=== PATIENT | male | born 1975 | race Caucasian/White ===

== ENCOUNTER → 2016-08-29 | Outpatient (CLI) | payer OTHER ==
[~2016-08-29] MED LIST: ACET-1256 PO; OXYC-57 PO; XRL15 PO; XRL20 PO
--- NOTE | 2016-08-29 12:04 | DIAGNOSTIC IMAGING REPORT ---
RIGHT WRIST MIN 3 VIEWS ROUTINE CLINICAL HISTORY: RIGHT WRIST FX Right trauma. Pain. COMPARISON: None. DISCUSSION: Slightly depressed fracture distal radius. Estimated impression is 2.5 mm. Fracture slightly oblique and extends to the mid articular services the radius. All remaining osseous structures are unremarkable. No evidence of dislocation. Moderate soft tissue edema IMPRESSION: Slightly depressed fracture distal radius extending to the articular surface. Electronically signed by: Kai Vega M.D. 08/29/2016 12:02 PM Dictated Date/Time: 08/29/2016 12:01 PM
== END | disposition home or self-care (01) ==
LOC: C.RDSM 15:16
PROVIDERS: ATTEND Physician Assistant
DX: S52.591A Other fractures of lower end of right radius, initial encounter for closed fracture (principal); X58.XXXA Exposure to other specified factors, initial encounter

== ENCOUNTER → 2016-08-30 | Outpatient (CLI) | payer OTHER ==
--- NOTE | 2016-08-30 08:23 | DIAGNOSTIC IMAGING REPORT ---
CT OF THE RIGHT WRIST CT DOSE: 252.23 mGy.cm HISTORY: Fracture RT WRIST PAIN, DISPLACED FX *3D RECONSTRUCTION* Right TECHNIQUE: Multiaxial CT images of the right wrist were performed and reformatted in the sagittal and coronal plane without the use of contrast. COMPARISON: None. FINDINGS: Oblique fracture distal radius. The oblique fracture involves the medial aspect of the distal radius. The avulsed fragment measures 1.9 cm in greatest linear dimension. Cross-sectional dimensions are 2.0 x 1.8 cm. Maximum bony distraction in the transaxial plane is 4 mm. Fracture extends to the articular services. Maximum separation at the articular services is approximately 3 mm. No additional acute bony abnormalities appreciated. There is moderate surrounding soft tissue edematous change. On the styloid appears to be intact. No additional abnormal motion is present. IMPRESSION: 1. Oblique mildly displaced fracture distal radius. 2. Fracture involves the medial aspect of the distal radius with extension to the articular surface. 3. dimensions are as noted above, with maximum distraction of 4 mm, and maximum separation at the articular surface of 3 mm. 4. Dimension of the avulsed fragment is as noted above. Electronically signed by: Kai Vega M.D. 08/30/2016 8:21 AM Dictated Date/Time: 08/30/2016 8:17 AM
== END | disposition home or self-care (01) ==
LOC: C.CTS 07:59
PROVIDERS: ATTEND Physician Assistant
DX: S52.591A Other fractures of lower end of right radius, initial encounter for closed fracture (principal); X58.XXXA Exposure to other specified factors, initial encounter

== ENCOUNTER 2016-09-04 07:49 | Day surgery (SDC) | payer OTHER ==
[2016-09-02 09:19] VITALS: BMI 36.0
--- NOTE | 2016-09-03 13:45 | HISTORY & PHYSICAL EXAMINATION ---
DATE OF ADMISSION: 09/04/2016 ATTENDING PHYSICIAN: Dr. Arturo Eddy. CHIEF COMPLAINTS: Right wrist pain. HISTORY OF PRESENT ILLNESS: This is a 41-year-old male, presents to the clinic for his preoperative history and physical. The patient fell on his outstretched right upper extremity while playing softball on 08/26/2016, causing significant pain in his wrist. The patient was unable to continue playing softball and was seen in [facility] on the , had x-rays performed and was placed in a splint and advised to follow up in our clinic. The patient has been in splint since. He has been using vaap-[id number] anti-inflammatories for relief of pain, inflammation and icing to the extremity. He states that he has appropriate range of motion of the fingers of his right hand. He denies any numbness or tingling in the right upper extremity, but has very limited range of motion due to fracture on his wrist. At this time, he denies any signs of fever, chills, sweats, nausea, vomiting, diarrhea or significant pain in the forearm. PAST MEDICAL HISTORY: Obesity. PAST SURGICAL HISTORY: None. FAMILY HISTORY: Positive for heart disease, cancer and diabetes. ALLERGIES: The patient has no known drug allergies. CURRENT MEDICATIONS: Ibuprofen 600 mg three times daily after meals. SOCIAL HISTORY: The patient consumes 2 alcoholic beverages per week, but denies any tobacco or illicit drug use. PHYSICAL EXAMINATION: SKIN: The patient's skin is normal in appearance. No skin lesions or discharge. He does have significant ecchymosis in the posterior aspect of the left thigh from a hamstring strain. EYES: Pupils are equal, round and reactive to light and accommodation. Extraocular movements are intact. EARS: Canals clear of cerumen. Tympanic membranes are intact bilaterally with no bulging or effusion. NOSE: Turbinates are pink and boggy in appearance with no appreciable rhinorrhea. THROAT: Posterior oropharynx is clear without edema, erythema or exudate. CARDIOVASCULAR: The patient has a regular rate and rhythm and no murmurs or gallops appreciated. LUNGS: Auscultation of lung guillaume reveals clear breath sounds throughout. No wheezing, rales or rhonchi. ABDOMEN: Obese, nondistended, and nontender with normoactive bowel sounds throughout. EXTREMITIES: Right wrist: The patient continues to have moderate edema over the dorsal surface of the right wrist. He experiences pain with attempted pronation of the wrist as well as wrist flexion and extension. He experiences referred pain to the distal radius with distraction and compression between the second and third digits. Otherwise, cosmetic manager strength is equal bilaterally. He experiences no pain with ulnar deviation or retraction and pincer grasp. There is no erythema, ecchymosis, or warmth or palpable deformity. No skin lesions or discharge. The patient is able make a complete fist without difficulty. He is able to resist wrist flexion and extension. At his elbow, he has full range of motion of the shoulder joint and appropriate dexterity of his digits on the right hand. The patient is neurovascularly intact in the upper extremities. Peripheral pulses are palpable. His capillary refill is brisk. All other extremities are normal in appearance throughout range of motion and strength. NEUROLOGICAL: Cranial nerves II-XII are intact. No motor or sensory deficits. PSYCHOLOGIC AND GENERAL: The patient is alert and oriented x3 with proper grooming and hygiene. DIAGNOSIS: Right wrist displaced Bender's fracture with volar subluxation. PROCEDURE: Right wrist open reduction internal fixation. PLAN: The patient is scheduled to undergo the procedure with Dr. Arturo Eddy at the [facility] on 09/04/2016. Risks and complications of the surgery such as, infection, bleeding, pain, scarring, nerve and blood vessel damage, weakness, wound problems, incomplete relief of symptoms, heart attack, stroke, , hardware failure, malunion, nonunion, and arthritis were explained to the patient and he understands and agrees. Written consent to perform the procedure was obtained. At this point, there is no indication for medical clearance or preoperative medical testing. The patient completed a questionnaire with anesthesia this afternoon and is cleared for surgery. The patient was given a prescription of Percocet for postoperative pain control to use following the procedure. PDMP was checked and no red flags raised that would prevent us from prescribing this medication. The patient will be scheduled for his followup examination with myself on 09/11/2016 at 11:00 a.m. His 2-week postoperative followup with Dr. Eddy is set for 09/19/2016 at 03:00 p.m. The patient was advised to bring the sling with him to the hospital and to fill his prescription pain medication prior to the procedure. The patient was also instructed to discontinue use of his ibuprofen. The patient verbalized understanding of all information provided at his visit, thanked us for the care he has received and states that if he has questions or concerns prior to his surgery date, he will contact the clinic. SYDNEY
[~2016-09-04] VITALS: Ht 167.6 cm; Wt 102.3 kg
[~2016-09-04 07:49] MED LIST changes: +CEFAZOLIN 2000 MG/60 ML D5W IV SCH; +LACTATED RINGER'S 1000ML 1,000 ML IV SCH; -OXYC-57 PO; -XRL15 PO; -XRL20 PO
[2016-09-04 08:31] LABS: HEMATOCRIT 40.9 % (42-52); MEAN CORPUSCULAR HEMOGLOBIN 29.3 pg (25-34); MEAN PLATELET VOLUME 8.6 fL (7.4-10.4); PLATELET COUNT 255 K/uL (130-400); RED BLOOD COUNT 4.81 M/uL (4.7-6.1); WHITE BLOOD COUNT 6.35 K/uL (4.8-10.8)
[2016-09-04 08:32] VITALS: BP 134/84; PULSE 62; TEMP 36.7; O2SAT 95; Ht 167.6 cm; Wt 102.3 kg
[2016-09-04 08:36] LABS: MEAN CORPUSCULAR HGB CONC 34.5 g/dl (32-36)
[2016-09-04 08:43] LABS: PROTHROMBIN TIME (PATIENT) 10.7 SECONDS (9.0-12.0)
[2016-09-04] MEDS ORDERED: DEXAMETHASONE SOD INJ 4 MG/ML VIAL ONE (09:21)
[2016-09-04] MEDS ORDERED: PROPOFOL IV EMULSION 10 MG/ML 20 ML VIAL IV ONE ×2 (09:21→11:17)
[2016-09-04] MEDS ORDERED: LIDOCAINE HCL 2% 2 ML VIAL (20MG/ML) ONE (09:21)
[2016-09-04] MEDS ORDERED: ONDANSETRON INJ 2 MG/ML 2 ML VIAL ONE (09:21)
[2016-09-04] MEDS ORDERED: MIDAZOLAM HCL 1 MG/ML 2ML VIAL ONE (09:22)
[2016-09-04] MEDS ORDERED: FENTANYL CITRATE INJ 50 MCG/1 ML 2 ML VIAL ONE ×3 (09:22→12:47)
--- NOTE | 2016-09-04 09:33 | History & Physical Bridge Note ---
H&P Re-Evaluation Bridge Note: I have examined the patient, reviewed the History & Physical and in the interval since the performance of the History & Physical I have noted the following changes of clinical significance: No changes noted
[2016-09-04] MEDS ORDERED: LIDOCAINE/EPINEPHRINE 1% 20 ML VIAL ONE (10:51)
[2016-09-04] MEDS ORDERED: BUPIVACAINE 0.5 % 5 MG/1 ML MPF 30ML VIAL ONE (10:51)
[2016-09-04] MEDS ORDERED: MoRPHine SULFATE 4 MG/ML 1 ML CARP\\VIAL IV PRN (13:30)
[2016-09-04] MEDS ORDERED: OXYCODONE/ACETAMINOPHEN 5-325 TAB PO PRN (13:30)
[2016-09-04] MEDS ORDERED: MoRPHine SULFATE 2 MG/ML CARP IV PRN (13:30)
[2016-09-04] MEDS ORDERED: ONDANSETRON INJ 2 MG/ML 2 ML VIAL IV PRN (13:30)
--- NOTE | 2016-09-04 13:31 | DIAGNOSTIC IMAGING REPORT ---
RIGHT WRIST 2 VIEWS CLINICAL HISTORY: ORIF RT Right COMPARISON STUDY: Right wrist 08/29/2016. FINDINGS: Total fluoroscopy time was 27 seconds. A total of 3 intraoperative fluoroscopic spot images submitted. There is a cortical plate transfixed with screws bridging the distal radius fracture. The hardware appears intact. The alignment is near-anatomic. IMPRESSION: Fluoroscopy provided for internal fixation of a distal radius fracture. Electronically signed by: Obie Stanley M.D. 09/04/2016 1:30 PM Dictated Date/Time: 09/04/2016 1:29 PM
--- NOTE | 2016-09-04 13:31 | Discharge Instructions ---
Discharge Instructions Date of Service Sep 04, 2016. Admission Reason for Admission: Right Wrist Displaced Bender's Fracture W/Volar Wr Discharge Discharge Diagnosis / Problem: Status post ORIF Right wrist fracture Discharge Goals Goal(s): Decrease discomfort, Improve function, Increase independence Activity Recommendations Activity Limitations: per Instructions/Follow-up section Lifting Limitations: no more than 5 pounds Exercise/Sports Limitations: none May Resume Sexual Activity: when tolerated Shower/Bathe: may shower/bathe in 3 days Driving or Machine Use: Not while on narcotics or wearing splint . Instructions / Follow-Up Instructions / Follow-Up Dr. Eddy in 10-15 days. PT in 2-5 days. Current Hospital Diet Patient's current hospital diet: Regular Diet Discharge Diet Recommended Diet: Regular Diet Procedures Procedures Performed: Right Wrist Open Reduction Internal Fixation Pending Studies Studies pending at discharge: no Work Instructions Lifting Limitations: No more than cup of coffee Medical Emergencies . Who to Call and When: Medical Emergencies: If at any time you feel your situation is an emergency, please call 911 immediately. . Non-Emergent Contact Non-Emergency issues call your: Surgeon Call Non-Emergent contact if: temperature is above 101.5, your pain is not controlled, wound has increased drainage, wound has increased redness . "Provider Documentation" section prepared by Arturo Eddy. . VTE Core Measure Inpt VTE Proph given/why not?: Adrian Siu
--- NOTE | 2016-09-04 13:32 | [facility] Post Operative Brief Note ---
Immediate Operative Summary Operative Date Sep 04, 2016. Pre-Operative Diagnosis Right wrist displaced Bender's fracture with volar subluxation Post-Operative Diagnosis Right wrist displaced Bender's fracture with volar subluxation Procedure(s) Performed Right Wrist Open Reduction Internal Fixation Surgeon Dr. Arturo Eddy Machine Ii Cutter Surgeon(s) Pino Graham MD Estimated Blood Loss 7ML Findings 2 part intra-articular volar Bender Ulnar variant, displaced. Fluids (cc crystalloids) 1300 Specimens none per surgeon Dr. Arturo Eddy Drains n/a Anesthesia LMA Complication(s) None Disposition Recovery Room / PACU (Stable)
--- NOTE | 2016-09-04 13:35 | [facility] Operative Report ---
Operative Report Operative Date Sep 04, 2016. Pre-Operative Diagnosis Right wrist displaced Bender's fracture with volar subluxation Post-Operative Diagnosis Same Procedure(s) Performed Open Reduction Internal Fixation Right Distal Radius Fracture. Surgeon Dr. Arturo Eddy Batch Still Operator Surgeon(s) Pino Graham MD Estimated Blood Loss 7ML Findings 2 part intra-articular volar Bender Ulnar variant, displaced. Fluids 1300 Specimens none per surgeon Dr. Arturo Eddy Drains n/a Anesthesia LMA Complication(s) None Disposition Recovery Room / PACU (Stable) Indications Patient is a 41 year old male with x-ray, CT scan and clinical exam findings consistent with an unstable and displaced right distal radius fracture. After a lengthy discussion with the patient regarding their treatment options, I recommended that they undergo an ORIF of her right distal radius fracture. The risk of surgery were discussed and include but not limited to: bleeding, nerve damage, infection, failure of the hardware, mal-union, non-union, continued pain , progression of arthritis, decreased activity level, and DVT. They understood all the risks and benefits and wished to proceed with surgery. The informed consent was signed. Description of Procedure IMPLANTS: 1) 2.4 mm VA-LCP Two-Column Volar Distal Radius Plate (Synthes). 2) 2.4 mm Vairable Angle Locking Screws (12 x 2, 14, 16 x 2, & 18 mm). PROCEDURE: The patient was taken to the Operating Room and placed in the supine position on the operating table. After general anesthetic was administered a multidisciplinary time-out was performed identifying my initials on the right upper limb as the correct and operative limb. Prior to the incision being made , 2 grams of intravenous Ancef were given. The splint was removed. The right upper extremity was prepped and draped in the standard sterile fashion. The planned incision was marked volarly ulnar to the radial artery. It was injected with a 50:50 mixture of 1% Lidocaine plain and 0.5% Marcaine with epi for a total of 6 cc. The limb was then exsanguinated by gravity for 3 minutes before inflating the tourniquet to 250mmHg. The planned incision was made and carried to the FCR. The sheath was incised and the FCR displaced radially to allow for the floor to be incised. Blunt dissection allowed exposure of the Pronator Quadratus. The ulnar fragment was easily identified. The fracture line was debrided to allow for the best reduction with combination of freer, dental pick, rongeur, and irrigation. A fragment was manually reduced with traction, wrist flexion and using a dental pick. The fragment was unstable and a K-wire was placed percutaneously from the radial styloid, used to stabilize the ulnar fragment to the main fragment. Fluoro was used to confirm the reduced fracture and the selected plates proper placement. The plate was held in place with K-ires. It initially could be placed a couple of mm more distal and a non-locking screw was placed in the glide hole and before tightening, the plate was repositioned 2 mm distally. The distal holes were then filled, 2 in the Ulnar fragment and 2 in the main fragment, followed by the proximal locking screws. The non-locking screw which was a few mm long was removed. The wounds were copiously irrigated. Final x- rays were taken showing anatomic reduction. The Pronator Quadratus was closed over the plate distally with 2-0 Vicryl. The tourniquet was deflated. Hemostasis was well maintained. The skin was closed with 4-0 Nylon using horizontal mattress stitch. The limb was cleaned and dried. The incision was covered with Xeroform, 4x4's, ADB, sterile cast padding a resting volar splint and AURELIANO bandage. The sponge and needle counts were correct. POST-OP INSTRUCTIONS. The patient will continue with the splint until their follow-up in 2 weeks. Pain medication was given to be used as needed. No lifting with right hand. The patient will follow up with me in 10-15 days. I attest to the content of the Intraoperative Record and any orders documented therein. Any exceptions are noted below.
[2016-09-04 14:30] VITALS: BP 147/72; PULSE 58; TEMP 37.1; O2SAT 94
--- NOTE | 2016-09-04 14:31 | Anesthesiology Progress Note ---
Anesthesia Post Op Note Date & Time Sep 04, 2016 at 14:31 Vital Signs Pain Intensity: 0 Vital Signs Past 12 Hours Date Time Temp Pulse Resp B/P (MAP) Pulse Ox O2 Delivery O2 Flow Rate FiO2 09/04/16 14:20 36.5 64 18 134/80 95 Room Air 09/04/16 14:10 63 18 129/78 95 Room Air 09/04/16 14:00 65 20 129/82 98 Oxymask 3 09/04/16 13:50 67 16 143/94 98 Oxymask 10 09/04/16 13:44 36.4 71 16 147/88 98 Oxymask 10 09/04/16 08:32 36.7 62 18 134/84 (101) 95 Room Air Notes Mental Status: alert / awake / arousable, participated in evaluation Pt Amnestic to Procedure: Yes Nausea / Vomiting: adequately controlled Pain: adequately controlled Airway Patency, RR, SpO2: stable & adequate BP & HR: stable & adequate Hydration State: stable & adequate Anesthetic Complications: no major complications apparent
[2016-09-04 15:00] VITALS: BP 128/84; PULSE 63; TEMP 36.7; O2SAT 95
[2016-09-04 15:30] VITALS: BP 134/84; PULSE 58; TEMP 36.8; O2SAT 97
== END 2016-09-04 15:52 | disposition home or self-care (01) ==
LOC: C.ACU 07:49
PROVIDERS: ATTEND Orthopaedic Surgery Sports Medicine
DX: S52.561A Barton's fracture of right radius, initial encounter for closed fracture (principal); W19.XXXA Unspecified fall, initial encounter; Y93.64 Activity, baseball; E66.9 Obesity, unspecified; Z68.36 Body mass index [BMI] 36.0-36.9, adult; Z82.49 Family history of ischemic heart disease and other diseases of the circulatory system; Z80.9 Family history of malignant neoplasm, unspecified; Z83.3 Family history of diabetes mellitus

== ENCOUNTER → 2016-10-17 | Outpatient (CLI) | payer OTHER ==
[~2016-10-17] MED LIST changes: -CEFAZOLIN 2000 MG/60 ML D5W IV SCH; -LACTATED RINGER'S 1000ML 1,000 ML IV SCH; +OXYC-57 PO; +XRL15 PO; +XRL20 PO
== END | disposition home or self-care (01) ==
LOC: C.RDSM 14:56
PROVIDERS: ATTEND Orthopaedic Surgery Sports Medicine
DX: Z09 Encounter for follow-up examination after completed treatment for conditions other than malignant neoplasm (principal)

== ENCOUNTER 2016-10-23 21:53 | Inpatient (IN) | payer OTHER ==
[~2016-10-23] VITALS: Ht 167.6 cm; Wt 119.3 kg
[~2016-10-23 21:53] MED LIST changes: -OXYC-57 PO; -XRL15 PO; -XRL20 PO
--- NOTE | 2016-10-23 22:57 | DIAGNOSTIC IMAGING REPORT ---
CHEST ONE VIEW PORTABLE CLINICAL HISTORY: Shortness of breath. COMPARISON STUDY: No previous studies for comparison. FINDINGS: The heart is enlarged. There is elevation the right hemidiaphragm. There are low lung volumes. There are hypoventilatory changes at the lung bases.[ No pleural effusions are visualized. There is no failure. IMPRESSION: 1. Mild cardiomegaly 2. Low lung volumes with elevation of the right hemidiaphragm and hypoventilatory changes at the lung bases. Electronically signed by: Nico Mckeon M.D. 10/23/2016 10:56 PM Dictated Date/Time: 10/23/2016 10:54 PM
[2016-10-23 23:00] LABS: BASO % 0.1 %; BASO ABS # 0.01 K/uL (0-0.2); COMPLETE YES; EOS % 0.1 %; IG% 0.2 %; LYMPH % 10.3 %; LYMPH ABS # 1.02 K/uL (1.2-3.4); MEAN CELL VOLUME 84.9 fL (80-100); MEAN CORPUSCULAR HEMOGLOBIN 29.3 pg (25-34); MEAN CORPUSCULAR HGB CONC 34.5 g/dl (32-36); MEAN PLATELET VOLUME 9.1 fL (7.4-10.4); MONO % 4.6 %; NEUT % 84.7 %; PLATELET COUNT 257 K/uL (130-400); RED BLOOD COUNT 4.71 M/uL (4.7-6.1); WHITE BLOOD COUNT 9.89 K/uL (4.8-10.8)
--- NOTE | 2016-10-23 23:05 | EMERGENCY ROOM VISIT NOTE ---
History Report prepared by Arlen: Nestor Khan Under the Supervision of: Dr. Elisabeth Perez D.O. First contact with patient: 22:43 Chief Complaint: SHORTNESS OF BREATH Stated Complaint: POST SURGERY SOB, PAIN Nursing Triage Summary: Patient with c/o shortness and breath and pain under right ribs s/p right wrist surgery today. History of Present Illness The patient is a 41 year old male who presents to the Emergency Room with complaints of cramping right sided rib pain that began this evening. He rates his pain a 5/10 in severity. The patient had a surgical procedure done earlier today. He had a plate removed from his right arm and a different device implanted. He currently has a nerve block in his right arm. This evening, the patient tried to lie down and had this sudden pain begin, making him short of breath as well. Lying down makes his pain and shortness of breath worse. Taking a deep breath exacerbates his pain. He denies any fevers, chills, abdominal pain , nausea, vomiting, hematochezia, melena, diarrhea, or abnormal urinary symptoms. He denies any pain or swelling in his legs. Source of History: patient Onset: this evening Position: chest (right rib) Symptom Intensity: 5/10 Quality: cramping Timing: constant Modifying Factors (Worsening): rest (Lying down), breathing Associated Symptoms: + SOB, No fevers, No nausea, No vomiting, No abdominal pain, No melena, No hematochezia, No diarrhea, No urinary symptoms Review of Systems See HPI for pertinent positives & negatives. A total of 10 systems reviewed and were otherwise negative. Past Medical & Surgical Medical Problems: (1) Pulmonary embolism Family History FHx: cancer Heart disease Social History Smoking Status: Never Smoker Smokeless Tobacco Use: No Drug Use: none Marital Status: Housing Status: lives with significant other Occupation Status: employed Current/Historical Medications Scheduled Oxycodone/Acetaminophen 5MG/325MG (Percocet 5MG/325MG), 1-2 TABLETS PO Q4-6 Rivaroxaban (Xarelto), 1 TAB PO BID Rivaroxaban (Xarelto), 1 TAB PO DAILY Scheduled PRN Acetaminophen (Tylenol), 1,000 MG PO Q6 PRN for Pain Allergies Coded Allergies: No Known Allergies (Unverified , 10/23/16) Physical Exam Vital Signs Date Time Temp Pulse Resp B/P (MAP) Pulse Ox O2 Delivery O2 Flow Rate FiO2 10/24/16 00:50 74 10/24/16 00:37 56 16 154/86 97 Room Air 10/23/16 23:27 96 16 147/81 96 Room Air 10/23/16 23:08 Room Air 10/23/16 22:31 Room Air 10/23/16 22:28 Room Air 10/23/16 22:01 37.2 62 18 127/78 96 Room Air Physical Exam GENERAL: alert, well appearing, well nourished, no distress, non-toxic EYE EXAM: normal conjunctiva, PERRL and EOM's grossly intact OROPHARYNX: no exudate, no erythema, lips, buccal mucosa, and tongue normal and mucous membranes are moist NECK: supple, no nuchal rigidity, no adenopathy, non-tender LUNGS: Clear to auscultation. Normal chest wall mechanics. No wheezes, rhonchi, or rales. HEART: no murmurs, S1 normal and S2 normal CHEST: No reproducible chest wall pain. ABDOMEN: abdomen soft, non-tender, normo-active bowel sounds, no masses, no rebound or guarding. BACK: Back is symmetrical on inspection and there is no deformity, no midline tenderness, no CVA tenderness. SKIN: no rashes and no bruising UPPER EXTREMITIES: Postprocedural right upper extremity in a sling, numbness secondary to nerve block. LOWER EXTREMITIES: No pitting edema. NEURO EXAM: Normal sensorium, cranial nerves II-XII grossly intact, normal speech, no gross weakness of left arm, no gross weakness of legs. Medical Decision & Procedures ER Provider Diagnostic Interpretation: Radiology results have been interpreted by the radiologist and reviewed by me. CHEST ONE VIEW PORTABLE CLINICAL HISTORY: Shortness of breath. COMPARISON STUDY: No previous studies for comparison. FINDINGS: The heart is enlarged. There is elevation the right hemidiaphragm. There are low lung volumes. There are hypoventilatory changes at the lung bases.[ No pleural effusions are visualized. There is no failure. IMPRESSION: 1. Mild cardiomegaly 2. Low lung volumes with elevation of the right hemidiaphragm and hypoventilatory changes at the lung bases. Electronically signed by: Nico Mckeon M.D. 10/23/2016 10:56 PM Dictated Date/Time: 10/23/2016 10:54 PM CTA CHEST: Breathing motion artifact limits evaluation of small peripheral pulmonary arteries. Positive for pulmonary embolism in the right upper lobe pulmonary arteries, likely the right lower lobe arteries. Mild flattening of the interventricular septum. May reflect mild right heart strain. Mild right lower lobe atelectasis or consolidation. Postop changes of the right forearm on utility appraiser view. Radiologist: Korina Holland M.D. Laboratory Results 10/23/16 22:45 Red Blood Count 4.71, Mean Corpuscular Volume 84.9, Mean Corpuscular Hemoglobin 29.3, Mean Corpuscular Hemoglobin Concent 34.5, Mean Platelet Volume 9.1, Neutrophils (%) (Auto) 84.7, Lymphocytes (%) (Auto) 10.3, Monocytes (%) (Auto) 4.6, Eosinophils (%) (Auto) 0.1, Basophils (%) (Auto) 0.1, Neutrophils # (Auto) 8.38, Lymphocytes # (Auto) 1.02, Monocytes # (Auto) 0.45, Eosinophils # (Auto) 0.01, Basophils # (Auto) 0.01 10/23/16 22:45 Test 10/23/16 22:45 10/23/16 22:58 10/24/16 00:57 White Blood Count 9.89 K/uL (4.8-10.8) Red Blood Count 4.71 M/uL (4.7-6.1) Hemoglobin 13.8 g/dL (14.0-18.0) Hematocrit 40.0 % (42-52) Mean Corpuscular Volume 84.9 fL (80-100) Mean Corpuscular Hemoglobin 29.3 pg (25-34) Mean Corpuscular Hemoglobin Concent 34.5 g/dl (32-36) Platelet Count 257 K/uL (130-400) Mean Platelet Volume 9.1 fL (7.4-10.4) Neutrophils (%) (Auto) 84.7 % Lymphocytes (%) (Auto) 10.3 % Monocytes (%) (Auto) 4.6 % Eosinophils (%) (Auto) 0.1 % Basophils (%) (Auto) 0.1 % Neutrophils # (Auto) 8.38 K/uL (1.4-6.5) Lymphocytes # (Auto) 1.02 K/uL (1.2-3.4) Monocytes # (Auto) 0.45 K/uL (0.11-0.59) Eosinophils # (Auto) 0.01 K/uL (0-0.5) Basophils # (Auto) 0.01 K/uL (0-0.2) RDW Standard Deviation 43.4 fL (36.4-46.3) RDW Coefficient of Variation 14.0 % (11.5-14.5) Immature Granulocyte % (Auto) 0.2 % Immature Granulocyte # (Auto) 0.02 K/uL (0.00-0.02) Prothrombin Time 10.9 SECONDS (9.0-12.0) Prothromb Time International Ratio 1.0 (0.9-1.1) Anion Gap 5.0 mmol/L (3-11) Est Creatinine Clear Calc Drug Dose 106.8 ml/min Estimated GFR () 95.5 Estimated GFR (Non- 82.4 BUN/Creatinine Ratio 14.9 (10-20) Calcium Level 8.8 mg/dl (8.5-10.1) Total Bilirubin 0.6 mg/dl (0.2-1) Aspartate Amino Transf (AST/SGOT) 30 U/L (15-37) Alanine Aminotransferase (ALT/SGPT) 53 U/L (12-78) Alkaline Phosphatase 99 U/L (45-117) Total Protein 7.0 gm/dl (6.4-8.2) Albumin 3.5 gm/dl (3.4-5.0) Globulin 3.5 gm/dl (2.5-4.0) Albumin/Globulin Ratio 1.0 (0.9-2) Bedside D-Dimer > 450 ng/mlFEU (0-450) Bedside Troponin I < 0.030 ng/ml (0-0.045) Laboratory results per my review. Medications Administered Medications (Trade) Dose Ordered Sig/Efe Route Start Time Stop Time Status Last Admin Dose Admin Heparin Sodium/ Dextrose (Heparin 25,000 Unit/500ml D5W) 25,000 unit STK-MED ONCE .ROUTE 10/24/16 00:53 10/24/16 00:54 DC 10/24/16 01:27 25,000 UNIT Oxycodone/ Acetaminophen (Percocet 5-325mg Tab) 1 tab Q4H PRN PO 10/24/16 01:00 10/24/16 18:23 DC 10/24/16 11:35 1 TAB ECG Indication: chest pain, SOB/dyspnea Rate (beats per minute): 61 Rhythm: normal sinus Findings: Q waves (Lead 3), no acute ischemic change, other (Normal axis, normal intervals) ED Course 2243: The patient was evaluated in room C3. A complete history and physical exam was performed. 0038: I updated the patient at this time. We discussed his results and treatment plan. I spoke with Dr. Garnica of [facility] at this time. They recommended starting the patient on a Heparin drip. He will be evaluating the patient for further management and care. 0040: Ordered Heparin Sodium/Dextrose 1 ea N/A Medical Decision Differential diagnosis: Etiologies such as infections, reactive airway disease, pneumonia, pneumothorax , COPD, CHF, cardiac ischemia, pulmonary embolism, musculoskeletal, gastrointestinal, as well as others were entertained. Patient well-appearing here, found to have multiple PEs. Unclear if related to recent surgery versus possible genetic component given brother's history of prior DVT that was previously thought to be related to malignancy. Patient not hypoxic, vital signs stable, troponin negative, EKG without any acute changes, no evidence of right heart strain. Patient started on anticoagulation and hyperkalemia will panel ordered after discussion with medicine. Patient aware of all results and need for admission. Hospitalist comfortable keeping the patient here despite recent surgery done at [place]. Doubt any additional cardiac pathology, no evidence of occult infectious etiology. Patient's right upper extremity still numb following nerve block for surgery this morning. Medication Reconcilliation Current Medication List: was personally reviewed by hi Blood Pressure Screening Patient's blood pressure: Normal blood pressure Blood pressure disposition: Did not require urgent referral Consults Time Called: 0035 Consulting Physician: Dr. Garnica - [facility] Returned Call: 0038 We discussed the patient's case at this time. They recommended starting the patient on Heparin. He will be evaluating that patient for further management and care. Impression Primary Impression: Pleuritic chest pain Additional Impression: Multiple pulmonary emboli Critical Care I have personally spent greater than 35 minutes of critical care time in the direct management of this patient. This includes bedside care, interpretation of diagnostic studies, and testing, discussion with consultants, patient, and family members, and other required patient management activities. This 35 minutes is in excess of all separately billable procedures. Involved system: Pulmonary, cardiac Scribe Attestation The scribe's documentation has been prepared under my direction and personally reviewed by me in its entirety. I confirm that the note above accurately reflects all work, treatment, procedures, and medical decision making performed by me. Departure Information Dispostion Being Evaluated By Hospitalist Prescriptions Rivaroxaban (Xarelto) 20 Mg Tab 1 TAB PO DAILY for 30 Days, #30 TAB 1 Refill Prov: Litzy Downing M.D. 10/24/16 Rivaroxaban (Xarelto) 15 Mg Tab 1 TAB PO BID for 21 Days, #1 TAB 0 Refills Prov: Litzy Downing M.D. 10/24/16 Referrals Nico Vera M.D. (PCP) Patient Instructions My [facility] Problem Qualifiers
[2016-10-23 23:13] LABS: PARTIAL THROMBOPLASTIN RATIO 0.9; PROTHROMBIN TIME (PATIENT) 10.9 SECONDS (9.0-12.0)
[2016-10-23 23:17] LABS: BUN/CREATININE RATIO 14.9 (10-20); CALCIUM 8.8 mg/dl (8.5-10.1); CREATININE 1.1 mg/dl (0.60-1.40); POTASSIUM 4.1 mmol/L (3.5-5.1)
[2016-10-23 23:17] LABS: POINT OF CARE TROPONIN I < 0.030 ng/ml (0-0.045)
[2016-10-23] MEDS ORDERED: OPTIRAY 320 IV PRN (23:30)
[2016-10-24] VITALS (11 sets, daily range): BP systolic 118–152; BP diastolic 77–85; PULSE 50–78; TEMP 36.6–37; O2SAT 92–95; Ht 167.6 cm; Wt 119.3 kg
[2016-10-24] MEDS ORDERED: HEPARIN 25000 UNIT/500 ML D5W ONE (00:53)
[2016-10-24] MEDS ORDERED: ONDANSETRON INJ 2 MG/ML 2 ML VIAL IV PRN (01:00)
[2016-10-24] MEDS ORDERED: ZOLPIDEM TARTRATE 5 MG TAB PO PRN (01:00)
--- NOTE | 2016-10-24 01:14 | History and Physical ---
History & Physical Date & Time of Service: Oct 24, 2016 at 01:06 Chief Complaint: Post Surgery Sob, Pain Primary Care Physician: Nico Vera M.D. History of Present Illness Source: patient Mr Proctor is a 41-year-old male who presents with shortness of breath. He reports that he was at [facility] earlier today around 10 AM and underwent general anesthesia to have a plate removed from his wrist. He previously had surgery on this when he had a softball accident, where he had fallen onto his right arm and dislocated and fractured it. Some of the nails attached to the tendons had been displaced, so he had repeat surgery again today. He denies any complications from the surgery and was discharged home the same day. He got home around 5:30 PM, and he noticed right side of his chest was cramping and that he would have shortness of breath when taking a deep breath in or laying flat. He came into the hospital and was found to have a right upper lobe and right lower lobe pulmonary embolism. He denies any family history with significant other clots. His brother did have a DVT in the leg though this was when he had cancer so was presumed to be provoked and he denied a hypercoagulable workup. Past Medical/Surgical History PMHx: none PSHx: R arm surgery x 2 Family History FHx: cancer Heart disease Social History Smoking Status: Never Smoker Smokeless Tobacco Use: No Alcohol Use: none Drug Use: none Marital Status: Housing status: lives with family Occupational Status: employed Immunizations History of Influenza Vaccine: Unknown History of Tetanus Vaccine?: Unknown History of Pneumococcal: Unknown History of Hepatitis B Vaccine: Unknown Multi-Drug Resistant Organisms History of MDRO: No Allergies Coded Allergies: No Known Allergies (Unverified , 10/23/16) Home Medications Scheduled Oxycodone/Acetaminophen 5MG/325MG (Percocet 5MG/325MG), 1-2 TABLETS PO Q4-6 Scheduled PRN Acetaminophen (Tylenol), 1,000 MG PO Q6 PRN for Pain Review of Systems See HPI for pertinent positives & negatives. A total of 10 systems reviewed and were otherwise negative. Physical Exam Vital Signs Date Time Temp Pulse Resp B/P (MAP) Pulse Ox O2 Delivery O2 Flow Rate FiO2 10/24/16 00:37 56 16 154/86 97 Room Air 10/23/16 23:27 96 16 147/81 96 Room Air 10/23/16 23:08 Room Air 10/23/16 22:31 Room Air 10/23/16 22:28 Room Air 10/23/16 22:01 37.2 62 18 127/78 96 Room Air General Appearance: WD/WN, + mild distress Head: normocephalic, atraumatic Eyes: normal inspection, PERRL ENT: hearing grossly normal Neck: supple, no JVD Respiratory/Chest: lungs clear, normal breath sounds, no respiratory distress Cardiovascular: regular rate, rhythm, no murmur, normal peripheral pulses Abdomen/GI: normal bowel sounds, non tender, soft Back: normal inspection, no muscle spasm, normal range of motion Extremities/Musculoskelatal: no calf tenderness, no pedal edema, + pertinent finding (R arm in sling) Neurologic/Psych: alert, normal mood/affect, normal reflexes, oriented x 3 Skin: no rash Diagnostics Laboratory Results Results Past 24 Hours Test 10/23/16 22:45 10/23/16 22:58 10/24/16 00:57 Range/Units White Blood Count 9.89 4.8-10.8 K/uL Red Blood Count 4.71 4.7-6.1 M/uL Hemoglobin 13.8 14.0-18.0 g/dL Hematocrit 40.0 42-52 % Mean Corpuscular Volume 84.9 80-100 fL Mean Corpuscular Hemoglobin 29.3 25-34 pg Mean Corpuscular Hemoglobin Concent 34.5 32-36 g/dl Platelet Count 257 130-400 K/uL Mean Platelet Volume 9.1 7.4-10.4 fL Neutrophils (%) (Auto) 84.7 % Lymphocytes (%) (Auto) 10.3 % Monocytes (%) (Auto) 4.6 % Eosinophils (%) (Auto) 0.1 % Basophils (%) (Auto) 0.1 % Neutrophils # (Auto) 8.38 1.4-6.5 K/uL Lymphocytes # (Auto) 1.02 1.2-3.4 K/uL Monocytes # (Auto) 0.45 0.11-0.59 K/uL Eosinophils # (Auto) 0.01 0-0.5 K/uL Basophils # (Auto) 0.01 0-0.2 K/uL RDW Standard Deviation 43.4 36.4-46.3 fL RDW Coefficient of Variation 14.0 11.5-14.5 % Immature Granulocyte % (Auto) 0.2 % Immature Granulocyte # (Auto) 0.02 0.00-0.02 K/uL Prothrombin Time 10.9 9.0-12.0 SECONDS Prothromb Time International Ratio 1.0 0.9-1.1 Activated Partial Thromboplast Time 23.0 21.0-31.0 SECONDS Partial Thromboplastin Ratio 0.9 Sodium Level 136 136-145 mmol/L Potassium Level 4.1 3.5-5.1 mmol/L Chloride Level 102 98-107 mmol/L Carbon Dioxide Level 29 21-32 mmol/L Anion Gap 5.0 3-11 mmol/L Blood Urea Nitrogen 16 7-18 mg/dl Creatinine 1.10 0.60-1.40 mg/dl Est Creatinine Clear Calc Drug Dose 106.8 ml/min Estimated GFR () 95.5 Estimated GFR (Non- 82.4 BUN/Creatinine Ratio 14.9 10-20 Random Glucose 118 70-99 mg/dl Calcium Level 8.8 8.5-10.1 mg/dl Total Bilirubin 0.6 0.2-1 mg/dl Aspartate Amino Transf (AST/SGOT) 30 15-37 U/L Alanine Aminotransferase (ALT/SGPT) 53 12-78 U/L Alkaline Phosphatase 99 45-117 U/L Total Protein 7.0 6.4-8.2 gm/dl Albumin 3.5 3.4-5.0 gm/dl Globulin 3.5 2.5-4.0 gm/dl Albumin/Globulin Ratio 1.0 0.9-2 Bedside D-Dimer > 450 0-450 ng/mlFEU Bedside Troponin I < 0.030 0-0.045 ng/ml Diagnostic Radiology CHEST ONE VIEW PORTABLE CLINICAL HISTORY: Shortness of breath. COMPARISON STUDY: No previous studies for comparison. FINDINGS: The heart is enlarged. There is elevation the right hemidiaphragm. There are low lung volumes. There are hypoventilatory changes at the lung bases.[ No pleural effusions are visualized. There is no failure. IMPRESSION: 1. Mild cardiomegaly 2. Low lung volumes with elevation of the right hemidiaphragm and hypoventilatory changes at the lung bases. Electronically signed by: Nico Mckeon M.D. 10/23/2016 10:56 PM Dictated Date/Time: 10/23/2016 10:54 PM CTA CHEST: Breathing motion artifact limits evaluation of small peripheral pulmonary arteries. Positive for pulmonary embolism in the right upper lobe pulmonary arteries, likely the right lower lobe arteries. Mild flattening of the interventricular septum. May reflect mild right heart strain. Mild right lower lobe atelectasis or consolidation. Postop changes of the right forearm on machine etcher view. Radiologist: Korina Holland M.D. EKG Normal sinus rhythm Possible Left atrial enlargement Left ventricular hypertrophy Abnormal ECG No previous ECGs available Impression Assessment and Plan 41 yo M with PE - first episode, unclear if it is truly provoked with brief time frame of surgery earlier today. Pulmonary embolism - Hypercoaguable workup obtained prior to Heparin - Heparin drip - Transition to PO anticoagulant tomorrow - Venous dopplers R arm surgery - Percocet q4h PRN - Remain in sling VTE: Heparin drip Code status: Full Dispo: Tele Attending Addendum: I have physically seen and examined this patient, have supervised the medical residents activities, and agree with the H&P as noted above with the following exceptions: NONE The patient is awake, well-developed and adequately nourished, alert and oriented 3, normocephalic and atraumatic, lying in bed and in no acute distress. HEENT--PERRL, EOMI, mucous membranes and oropharynx dry. Neck--supple, no JVD or bruits, thyroid normal, trachea midline, no adenopathy. Heart--normal S1 and S2, no extra beats, no murmurs, rubs or gallops. Lungs--clear bilaterally with good air movement, no respiratory distress, no accessory muscle use. Abdomen--normal bowel sounds and soft, nontender and nondistended, no hernias or masses, no organomegaly. Extremities--no cyanosis, clubbing or edema. Right arm is in a sling. There are good distal pulses b/l. Dermatologic--normal skin turgor, normal color, warm and dry, no abnormal lymph nodes, no rash. Neurologic--cranial nerves II through XII grossly intact. Rheumatologic--right arm in sling, exam otherwise normal. Psychiatric--normal affect. Assessment and Plan: 1. Right upper lobe and right lower lobe pulmonary embolism--patient will be admitted to the telemetry unit for close oxygen monitoring. Start heparin drip IV standard dose no bolus per weight-based protocol. Order bilateral lower extremity venous Dopplers. He will need to have a right upper extremity venous Doppler performed when sensation is returned after nerve block has worn off. Hypercoagulable workup ordered. Level of Care Telemetry Advanced Directives Existing Advance Directive: No Existing Living Will: No Existing Power of Porcelain Buildup Assistant: No Resuscitation Status FULL RESUSCITATION VTE Prophylaxis VTE Risk Assessment Done? Y/N: Yes Risk Level: Moderate Given or contraindicated: Other Anticoagulation (heparin IV standard dose no bolus per protocol) Social Service Consult None Apply Resident Tracking Resident Involvement: Resident Care Provided Care Provided: Adult Hospital Medicine
[2016-10-24] MEDS ORDERED: HEPARIN IV LOW DOSE NO BOLUS SCH (02:41)
[2016-10-24] MEDS: OXYCODONE/ACETAMINOPHEN 5-325 TAB PO PRN ×2 (04:39→11:35)
[2016-10-24] MEDS ORDERED: HEPARIN 25,000 UNIT/500ML D5W 500 ML IV PRN (05:00)
--- NOTE | 2016-10-24 06:42 | DIAGNOSTIC IMAGING REPORT ---
CT ANGIOGRAPHY OF THE CHEST, PULMONARY EMBOLUS PROTOCOL CLINICAL HISTORY: Shortness of breath. Chest pain. COMPARISON STUDY: Chest radiograph October 23, 2016. TECHNIQUE: Following IV administration of 97 mL of [id number]-320, helical axial images of the chest were obtained utilizing the pulmonary embolus protocol. Maximal intensity projections and sagittal and coronal reformats were viewed on an independent 3D workstation. IV contrast was administered without complication. A dose lowering technique was utilized adhering to the principles of ALARA. CT DOSE: 812.34 mGy.cm FINDINGS: There are multiple segmental pulmonary emboli throughout the lungs, these include emboli within the right upper, right lower, left upper and left lower lobes. There is no central pulmonary embolus. Note is made of moderate cardiomegaly. There is no pericardial effusion. Right lower lobe opacity is noted with volume loss. Linear right upper lobe opacity reflects atelectasis. There is no pneumothorax. There is no cavitation. Bony thorax is unremarkable. No abnormality is identified within the upper abdomen. Elevation of the right hemidiaphragm is noted. IMPRESSION: 1. Multiple segmental pulmonary emboli within the lungs, as described above. No convincing CT evidence for right heart strain. Moderate cardiomegaly. 2. Right lower lobe subpleural opacity with volume loss. Atelectasis is favored. Consolidation or pulmonary infarct could appear similar but are considered less likely. Electronically signed by: Patrick Salas M.D. 10/24/2016 6:40 AM Dictated Date/Time: 10/24/2016 6:33 AM
--- NOTE | 2016-10-24 06:51 | DIAGNOSTIC IMAGING REPORT ---
BILATERAL LOWER EXTREMITY VENOUS DOPPLER HISTORY: Acute bilateral lower extremity swelling COMPARISON STUDY: None. FINDINGS: There is normal compressibility, flow, and augmentation within the right lower extremity deep venous system. On the left, nonocclusive thrombus is present within the proximal aspect of the popliteal vein. The remaining deep veins of the left lower extremity are patent. IMPRESSION: 1. No evidence of deep venous thrombosis within the right lower extremity. 2. Nonocclusive deep venous thrombosis involves the proximal aspect of the popliteal vein. Electronically signed by: Jordan Fonseca M.D. 10/24/2016 6:49 AM Dictated Date/Time: 10/24/2016 6:45 AM
--- NOTE | 2016-10-24 08:19 | Family Medicine Progress Note ---
Progress Note Date of Service Oct 24, 2016. Subjective Pt evaluation today including: conversation w/ patient, physical exam, chart review, lab review, review of studies Voiding: no voiding problems Pt is resting comfortably in bed. Discussed need for monitoring his heart and lungs at this time due to the evidence of PE. Pt understands and agrees. Pt complained of some pain since the nerve block he received for the surgery yesterday wore off. His last percocet was at 2 am this morning. I let his nurse know, and discussed that post op the pain will be worse temporarily. Objective Physical Exam General Appearance: WD/WN, no apparent distress Eyes: normal inspection, PERRL, EOMI Respiratory/Chest: chest non-tender, no respiratory distress, + crackles (mild lower lobe crackles) Cardiovascular: regular rate, rhythm, no edema, no JVD Abdomen: normal bowel sounds, non tender, soft Extremities: + pertinent finding (RT arm in sling from Orthopedic revision surgery of RT wrist.) Skin: normal color, warm/dry, no rash Assessment and Plan 41M with PE - first episode, s/p orthopedic surgery, found to have RT PE. Pulmonary Embolism, RT upper and middle lobe - Pt had revision surgery of RT wrist at [place] yesterday morning. First surgery was end of August. - CTA CHEST: Positive for pulmonary embolism in the right upper lobe pulmonary arteries, likely the right lower lobe arteries. - EKG: Normal sinus rhythm. Possible Left atrial enlargement. Left ventricular hypertrophy. Abnormal ECG. No previous ECGs available. - Hypercoagulable work up obtained prior to Heparin. - Venous dopplers negative for clots. - Heparin drip DCed at 15:00 10/24. - Switched to Xarelto 15mg at 18:00 10/24. RT arm surgery - Percocet q4h PRN - Remain in sling VTE: Heparin drip Code status: Full Dispo: Tele. DC home. Discharge planning: home
[2016-10-24] MEDS ORDERED: HEPARIN IV BOLUS 4,500 UNIT in SYRINGE 0 ML IV ONE (11:45)
--- NOTE | 2016-10-24 15:09 | Discharge Summary ---
Discharge Summary Date of Service Oct 24, 2016. (Litzy Downing M.D.) Discharge Summary Admission Date: Oct 24, 2016 at 01:06 Discharge Date: Oct 24, 2016 Discharge Disposition: Home Principal Diagnosis: Pulmonary embolism Immunizations: Have You Had Influenza Vaccine: Unknown History of Tetanus Vaccine?: Unknown History of Pneumococcal: Unknown History of Hepatitis B Vaccine: Unknown (Litzy Downing M.D.) Medication Reconciliation New Medications: Rivaroxaban (Xarelto) 15 Mg Tab 1 TAB PO BID for 21 Days, #1 TAB 0 Refills Rivaroxaban (Xarelto) 20 Mg Tab 1 TAB PO DAILY for 30 Days, #30 TAB 1 Refill Continued Medications: Acetaminophen (Tylenol) 500 Mg Tab 1000 MG PO Q6 PRN for Pain for 2 Days, #20 TAB 3 Refills Oxycodone/Acetaminophen 5MG/325MG (Percocet 5MG/325MG) Tab 1-2 TABLETS PO Q4-6 for Pain, TAB PAIN Discharge Exam Review of Systems: Constitutional: No fever, No chills, No sweats Respiratory: No cough, No sputum, No wheezing Cardiovascular: No chest pain, No orthopnea, No edema Abdomen: No pain, No nausea, No vomiting Musculoskeletal: + problem reported (pain in his RT wrist under cast) Physical Exam: General Appearance: WD/WN, no apparent distress Eyes: normal inspection, PERRL, EOMI Respiratory/Chest: lungs clear, normal breath sounds, no respiratory distress Cardiovascular: regular rate, rhythm, no edema, no JVD, normal peripheral pulses Abdomen / GI: normal bowel sounds, non tender, soft Extremities: normal inspection, no pedal edema, + pertinent finding (RT arm in sling) Neurologic/Psychiatric: alert, normal mood/affect, oriented x 3 Skin: normal color, warm/dry, no rash (Litzy Downing M.D.) Hospital Course 41M with PE - first episode, s/p orthopedic surgery, found to have RT PE. Pulmonary Embolism, RT upper and middle lobe - Pt had revision surgery of RT wrist at [facility] yesterday morning. First surgery was end of August. - CTA CHEST: Positive for pulmonary embolism in the right upper lobe pulmonary arteries, likely the right lower lobe arteries. - EKG: Normal sinus rhythm. Possible Left atrial enlargement. Left ventricular hypertrophy. Abnormal ECG. No previous ECGs available. - Hypercoagulable work up obtained prior to Heparin. - Venous dopplers LE negative for clots. - Heparin drip DCed at 15:00 10/24. - Switched to Xarelto 15mg at 18:00 10/24. - Sent home with script for Xarelto 15 mg PO BID [id number], then 20mg PO OD x60 days. RT arm surgery - Percocet given q4h PRN - Remained in sling VTE: Heparin drip Code status: Full Total Time Spent: Greater than 30 minutes This includes examination of the patient, discharge planning, medication reconciliation, and communication with other providers. (Litzy Downing M.D.) Resident Physician Supervision Note: I interviewed and examined the patient. Discussed with Dr. Downing and agree with findings and plan as documented in the note. Any exceptions or clarifications are listed here: None Documented By: Da Champagne feeling ok wants to go home discussed anticoagulation ok w NOAC vitals noted nad breathing unlabored no pallor or icterus PE - stable/safe for home, transition to xarelto f/u PCP, otherwise as above (Da Champagne, D.O.) Discharge Instructions Please refer to the electronic Patient Visit Report (Discharge Instructions) for additional information. (Litzy Downing M.D.) Additional Copies To Nico Vera M.D. Resident Tracking Resident Involvement: Resident Care Provided Care Provided: Adult Hospital Medicine (Litzy Downing M.D.)
[2016-10-24] MEDS ORDERED: XRL15 PO (15:41)
[2016-10-24] MEDS ORDERED: XRL20 PO (15:41)
--- NOTE | 2016-10-24 15:47 | Discharge Instructions ---
Discharge Instructions Date of Service Oct 24, 2016. Admission Reason for Admission: Pulmonary Embolism Discharge Discharge Diagnosis / Problem: (1) Pulmonary embolism VTE Date & Time Date of VTE Diagnosis: Oct 23, 2016 Time of VTE Diagnosis: 23:28 Discharge Goals Goal(s): Decrease discomfort, Improve function, Improve disease control, Diagnostic testing, Therapeutic intervention Activity Recommendations Activity Limitations: as noted below Lifting Limitations: gradually increase as tolerated Exercise/Sports Limitations: gradually increase as tolerated May Resume Sexual Activity: when tolerated Driving or Machine Use: no limitations . Instructions / Follow-Up Instructions / Follow-Up - You were admitted because of pain in your chest and shortness of breath which was caused by a pulmonary embolism, likely provoked by multiple surgeries and long car rides. When the blood in our body sits for too long, or vessels are injured by routine surgeries, sometimes this can increase your risk of clots. When a big enough clot forms that the body cannot get rid of as normal, they can travel to different parts of the body and cause ischemia or damage. Yours traveled to the lungs and made it hard for you to breathe. - Pulmonary emboli are treated by closely monitoring vital signs and then also thinning the blood, in order to prevent new clots from forming, with Heparin intravenously. - Now that your vital signs are normal, and you've received sufficient doses of Heparin, it's time to switch your medication to one that can be taken at home. - You will be taking Xarelto tablets for the next 3 months. The schedule is as such: - First, take 15 mg twice a day, 12 hours apart, for 3 weeks total. (We discussed 6am and 6pm would work in your schedule.) - Then, after you have finished the 15 mg doses, you will take only 20mg ONCE DAILY, for 60 days total. - It is important that you follow up with your primary care provider regarding this hospitalization - we recommend you do this in 1-3 weeks. - Please know that with every medication there are both benefits and risks. The benefit is that we are preventing new clots from forming, hence preventing more emboli. But the risk is that the medication thins your blood too much, in which case should you get an injury, minor or major, there is a risk of excessive bleeding, or even hemorrhage. Generally, the risk of any major event depends on your type of injury, so please take care to not under go unnecessary dangerous or hi risk activities, or contact sports. Go to the emergency room after any serious injury. Any medical emergency, you should immediately call . - Should you get a minor injury like a cut or a scrape, apply direct pressure to the area of bleeding with a cloth for several minutes until the bleeding stops. Medication Instructions: Your condition is typically treated with an anticoagulant. Anticoagulants will thin your blood to help prevent new clots. * You should take her medication exactly as directed. * Never skip a dose. * Never take a double dose. If you miss a dose, take it as soon as you remember. Call your Primary Care doctor if you experience any of the following: * Swelling or Pain in your leg * Sudden, continuous pain deep in a muscle * Pain that worsens when you are active or when you stand still for a long time * Chest Pain * Sudden Shortness of Breath * Rapid or pounding heart beat * Fainting * Dizziness * Cough with blood or bloody sputum * Sweating more than normal * Bruises * Heavy or uncontrolled bleeding * Blood in your urine, stool or vomit * Black or tarry stools Caring for Your Self at Home: * Avoid sitting, standing or lying down for long periods without moving your legs and feet * When traveling by car, stop to get out and move around at least once every 3 hours * On long airplane, train or bus rides, get up and move around when possible * If you can't get up, wiggle your toes and tighten your calves to keep your blood moving Follow Up: It is important for you to keep your follow up appointments with your medical provider. Current Hospital Diet Patient's current hospital diet: Regular Diet Discharge Diet Recommended Diet: Regular Diet Fluid Restriction: None Pending Studies Studies pending at discharge: no Medical Emergencies . Who to Call and When: Medical Emergencies: If at any time you feel your situation is an emergency, please call 911 immediately. . Non-Emergent Contact Non-Emergency issues call your: Primary Care Provider . . "Provider Documentation" section prepared by Litzy Downing. . VTE Core Measure Inpt VTE Proph given/why not?: Other Anticoagulation (heparin IV standard dose no bolus per protocol)
--- NOTE | 2016-10-24 16:28 | Progress Note ---
Orthopedic SOAP Note Subjective Date of Service: Oct 24, 2016. Post OP Day: 1 Reports: feeling well (reports SOB improving, states prescribed pain medication allowing right wrist pain to be tolerable, states regional nerve block placed yesterday continues to wear off), SOB (improving s/p treatment), pain controlled w PO medications, Denies: complaints, chest pain, nausea / vomiting, light headedness, calf pain, using [employer] Additional Notes: Patient had surgery yesterday 10/23/[address] Kranthi Palma in [place], began having SOB upon arriving home yesterday post-operatively, sought treatment through [facility] Problem List Medical Problems: (1) Multiple pulmonary emboli Status: Acute (2) Pleuritic chest pain Status: Acute Objective N/V intact, capillary refill less than 2 sec., dressing C/D/I, A&O x3 sitting bedside chair with family in the room, NAD, long arm splint on right upper extremity elevated and currently icing, fingers freely mobile Date Time Temp Pulse Resp B/P (MAP) Pulse Ox O2 Delivery O2 Flow Rate FiO2 10/24/16 14:00 69 22 10/24/16 12:00 61 28 10/24/16 11:20 95 Room Air 10/24/16 11:20 36.9 53 17 135/79 (97) 94 Room Air 10/24/16 11:16 50 25 135/79 (97) 10/24/16 10:00 56 18 10/24/16 08:17 78 19 144/82 (102) 10/24/16 08:00 36.8 63 18 144/82 (102) 94 Room Air 10/24/16 08:00 62 20 10/24/16 08:00 94 Room Air 10/24/16 04:00 36.6 61 20 118/80 (93) 92 Room Air 10/24/16 04:00 95 Room Air 10/24/16 02:08 36.8 58 22 152/85 95 Room Air 10/24/16 01:50 37.2 61 16 128/69 94 10/24/16 01:26 61 16 128/69 94 Room Air 10/24/16 00:50 74 10/24/16 00:37 56 16 154/86 97 Room Air 10/23/16 23:27 96 16 147/81 96 Room Air 10/23/16 23:08 Room Air 10/23/16 22:31 Room Air 10/23/16 22:28 Room Air 10/23/16 22:01 37.2 62 18 127/78 96 Room Air Laboratory Results 24 Hours: Test 10/23/16 22:45 White Blood Count 9.89 K/uL Red Blood Count 4.71 M/uL Hemoglobin 13.8 g/dL Hematocrit 40.0 % Mean Corpuscular Volume 84.9 fL Mean Corpuscular Hemoglobin 29.3 pg Mean Corpuscular Hemoglobin Concent 34.5 g/dl Platelet Count 257 K/uL Mean Platelet Volume 9.1 fL Neutrophils (%) (Auto) 84.7 % Lymphocytes (%) (Auto) 10.3 % Monocytes (%) (Auto) 4.6 % Eosinophils (%) (Auto) 0.1 % Basophils (%) (Auto) 0.1 % Neutrophils # (Auto) 8.38 K/uL Lymphocytes # (Auto) 1.02 K/uL Monocytes # (Auto) 0.45 K/uL Eosinophils # (Auto) 0.01 K/uL Basophils # (Auto) 0.01 K/uL Prothromb Time International Ratio 1.0 Prothrombin Time 10.9 SECONDS Assessment Pulmonary embolism s/p Right wrist revision ORIF Plan continue care ice/elevate no lifting/use with right UE continue medications and precautions recommended for PE pain control with Percocet for right wrist surgery orthopedically, stable and will follow-up with Dr. Eddy at [facility] for post-operative check will discuss findings further with Dr. Eddy any questions orthopedically please call our office at [phone], thank you
[2016-10-24] MEDS ORDERED: RIVAROXABAN 20 MG TAB PO ONE (17:00)
[2016-10-24] MEDS ORDERED: RIVAROXABAN TAB 15 MG TAB PO ONE (18:00)
[2016-10-25] MEDS ORDERED: RIVAROXABAN TAB 15 MG TAB PO SCH (06:00)
[2016-11-01 12:41] LABS: ANTITHROMBINIII ACTIVITY** 104 % activity (80-120); B2 GLYCOPROTEIN IGA <9 SAU (<=20); B2 GLYCOPROTEIN IGG <9 SGU (<=20); B2 GLYCOPROTEIN IGM <9 SMU (<=20); LUPUS ANTICOAGULANT** TC36573X Negative (Negative); PROTEIN C ACTIVITY** TC 1777X 123 % (70-180)
== END 2016-10-24 18:19 | disposition home or self-care (01) | DRG 176 ==
LOC: C.EDB 21:55 → EEVIPCON 21:55 → C.MSICU 10-24 01:06 → ENRESERV 10-24 01:13
PROVIDERS: ADMIT Hospitalist; ATTEND Hospitalist
DX: I26.99 Other pulmonary embolism without acute cor pulmonale (principal); Z47.89 Encounter for other orthopedic aftercare; Z83.2 Family history of diseases of the blood and blood-forming organs and certain disorders involving the immune mechanism

== ENCOUNTER 2016-10-29 06:45 | Emergency (ER) | payer OTHER ==
[~2016-10-29] VITALS: Ht 167.6 cm; Wt 117.2 kg
[~2016-10-29 06:45] MED LIST changes: +XRL15 PO; +XRL20 PO
[2016-10-29 06:53] VITALS: TEMP 36.6; Ht 167.6 cm; Wt 117.2 kg
[2016-10-29 06:54] VITALS: O2SAT 98
[2016-10-29] MEDS ORDERED: XRL15 PO (07:04)
--- NOTE | 2016-10-29 07:06 | EMERGENCY ROOM VISIT NOTE ---
History First contact with patient: 06:51 Chief Complaint: SHORTNESS OF BREATH Stated Complaint: PE SYMPTOMS ARE BACK Nursing Triage Summary: Patient presents ambulatory to triage with c/o worsening shortness of breath and chest tightness in his lower right ribs Diagnosed on 10/24 with a pulmonary emboli and started on xarelto, which he took at 0600 this morning SOB is exacerbated by lying flat or on his side and is improved with standing or sitting up History of Present Illness The patient is a 41 year old male who presents to the Emergency Room via private vehicle accompanied by female and child with complaints of "PE symptoms or back". The patient states that he was recently hospitalized here for a pulmonary embolism. He states that he received a heparin drip, and that is been taking his Xarelto as prescribed. He takes 6 AM and 6 PM. He denies missing any doses. He states he was doing well over the past weekend, but notes that last night, he went for a walk and then felt lightheaded and what he describes as "woozy". He states he did not feel well, and then develop shortness of breath and discomfort in the right anterior chest. He states that he went to bed and woke up this morning and the chest pain was worse in the right anterior region. He states that he is concerned because of the return of the symptoms. He denies any cardiac history. Review of Systems A complete 10-point Review of Systems was discussed with the patient, with pertinent positives and negatives listed in the History of Present Illness. All remaining Review of Systems questions can be considered negative unless otherwise specified. Past Medical/Surgical History Medical Problems: (1) Pulmonary embolism Family History FHx: cancer Heart disease Social History Smoking Status: Never Smoker Drug Use: none Marital Status: Housing Status: lives with significant other Occupation Status: employed Current/Historical Medications Scheduled Oxycodone/Acetaminophen 5MG/325MG (Percocet 5MG/325MG), 1-2 TABLETS PO Q4-6 Rivaroxaban (Xarelto), 15 MG PO BID Physical Exam Vital Signs Date Time Temp Pulse Resp B/P (MAP) Pulse Ox O2 Delivery O2 Flow Rate FiO2 10/29/16 07:30 57 17 144/86 96 Room Air 10/29/16 07:10 69 20 153/86 92 Room Air 10/29/16 06:59 59 10/29/16 06:54 98 Room Air 10/29/16 06:53 36.6 67 20 131/105 97 Room Air 10/29/16 06:51 97 Room Air Physical Exam VITAL SIGNS - Vital signs and nursing notes were reviewed. Stable. GENERAL -41-year-old male appearing his stated age who is in no acute distress. Communicates well with provider and answers questions appropriately. SKIN - Without rashes. No petechia or meningeal rash. HEAD - NC/AT. EYES - PERRL with EOMI bilaterally. Sclera anicteric. No hyphema EARS - No deformities of external structures noted on gross examination bilaterally. NOSE - Midline and without cyanosis. No epistaxis or purulent drainage noted. MOUTH/OROPHARYNX - Without perioral cyanosis. No blood from the mouth. LUNGS - Chest wall symmetric without accessory muscle use, intercostals retractions, or central cyanosis. Normal vesicular breath sounds CTA B/L. No wheezes, rales, or rhonchi appreciated. CARDIAC - RRR with S1/S2. No murmur, rubs, or gallops appreciated. The right anterior chest pain is not reproducible with palpation. ABDOMEN - Abdominal contour normal without pulsations or visible masses. BS normoactive all four quadrants. No tenderness, palpable masses, hepatosplenomegaly, or ascites noted. EXTREMITIES - No clubbing or peripheral cyanosis. No pretibial edema present. No bruising of the extremities. NEUROLOGIC - Cranial nerves II through XII grossly intact. Sensory intact to light touch throughout. PSYCH - A&O. Pt is very pleasant and interacts well with examiner. Medical Decision & Procedures ER Provider Diagnostic Interpretation: CHEST ONE VIEW PORTABLE CLINICAL HISTORY: 41 years-old Male presenting with NEW: Chest pain, dyspnea. Recent PE diagnosis.. TECHNIQUE: Portable upright AP view of the chest was obtained. COMPARISON: 10/23/2016. FINDINGS: Mild prominence of the cardiac silhouette. Persistent elevation of the right hemidiaphragm. Mildly low lung volumes with hypoventilatory changes. No focal infiltrate. No large effusion or pneumothorax. Osseous structures normal. Upper abdomen normal. IMPRESSION: 1. Mild apparent cardiomegaly. No other evidence of acute cardiopulmonary disease. Electronically signed by: Mario Hayward M.D. 10/29/2016 7:38 AM Dictated Date/Time: 10/29/2016 7:36 AM Laboratory Results 10/29/16 07:10 Red Blood Count 5.12, Mean Corpuscular Volume 85.2, Mean Corpuscular Hemoglobin 28.9, Mean Corpuscular Hemoglobin Concent 33.9, Mean Platelet Volume 9.1, Neutrophils (%) (Auto) 62.2, Lymphocytes (%) (Auto) 26.7, Monocytes (%) (Auto) 7.6, Eosinophils (%) (Auto) 2.6, Basophils (%) (Auto) 0.6, Neutrophils # (Auto) 3.85, Lymphocytes # (Auto) 1.65, Monocytes # (Auto) 0.47, Eosinophils # (Auto) 0.16, Basophils # (Auto) 0.04 10/29/16 07:10 Test 10/29/16 07:10 10/29/16 07:18 White Blood Count 6.19 K/uL (4.8-10.8) Red Blood Count 5.12 M/uL (4.7-6.1) Hemoglobin 14.8 g/dL (14.0-18.0) Hematocrit 43.6 % (42-52) Mean Corpuscular Volume 85.2 fL (80-100) Mean Corpuscular Hemoglobin 28.9 pg (25-34) Mean Corpuscular Hemoglobin Concent 33.9 g/dl (32-36) Platelet Count 267 K/uL (130-400) Mean Platelet Volume 9.1 fL (7.4-10.4) Neutrophils (%) (Auto) 62.2 % Lymphocytes (%) (Auto) 26.7 % Monocytes (%) (Auto) 7.6 % Eosinophils (%) (Auto) 2.6 % Basophils (%) (Auto) 0.6 % Neutrophils # (Auto) 3.85 K/uL (1.4-6.5) Lymphocytes # (Auto) 1.65 K/uL (1.2-3.4) Monocytes # (Auto) 0.47 K/uL (0.11-0.59) Eosinophils # (Auto) 0.16 K/uL (0-0.5) Basophils # (Auto) 0.04 K/uL (0-0.2) RDW Standard Deviation 44.1 fL (36.4-46.3) RDW Coefficient of Variation 14.2 % (11.5-14.5) Immature Granulocyte % (Auto) 0.3 % Immature Granulocyte # (Auto) 0.02 K/uL (0.00-0.02) Prothrombin Time 12.3 SECONDS (9.0-12.0) Prothromb Time International Ratio 1.1 (0.9-1.1) Activated Partial Thromboplast Time 29.5 SECONDS (21.0-31.0) Partial Thromboplastin Ratio 1.1 Anion Gap 6.0 mmol/L (3-11) Est Creatinine Clear Calc Drug Dose 118.2 ml/min Estimated GFR () 109.8 Estimated GFR (Non- 94.7 BUN/Creatinine Ratio 15.4 (10-20) Calcium Level 9.1 mg/dl (8.5-10.1) Magnesium Level 1.9 mg/dl (1.8-2.4) Total Bilirubin 0.6 mg/dl (0.2-1) Aspartate Amino Transf (AST/SGOT) 31 U/L (15-37) Alanine Aminotransferase (ALT/SGPT) 71 U/L (12-78) Alkaline Phosphatase 98 U/L (45-117) Total Protein 7.3 gm/dl (6.4-8.2) Albumin 3.6 gm/dl (3.4-5.0) Globulin 3.7 gm/dl (2.5-4.0) Albumin/Globulin Ratio 1.0 (0.9-2) Bedside Troponin I < 0.030 ng/ml (0-0.045) Medical Decision Patient was seen and evaluated as above. After obtaining a thorough history and physical examination IV access is initiated, the above workup was performed. His previous visit was extensively reviewed. He was recently here for pulmonary embolism. The patient has had 2 recent surgeries, and a long car ride from [place]. Although the exact etiology of the thrombus is unclear, it is possible it is from these. Bedside EKG reveals sinus bradycardia, rate of 56 bpm. No ectopy or ischemic changes noted. Patient is not hypoxic. He is conversing well without difficulty. Benefits versus risk of re-CT scanning the patient's chest was discussed with the patient. Decision was made to begin evaluating via laboratory studies, any supple chest x-ray and then depending upon these results we will discuss whether or not a CT scan should be performed. He has not missed any doses of Xarelto, and is most likely that he is experiencing pain secondary to inflammation caused by the recent pulmonary embolism. It is unlikely he has a new PE. CBC reveals no leukocytosis or anemia. His hemoglobin is actually 1 point improved compared to October 23. There is no evidence of kidney or liver failure. EKG reveals no change from previous. Troponin is negative. Patient is most likely experiencing pain secondary to inflammation secondary to pulmonary embolism. He was offered a CT scan of the chest to definitively evaluate for new pulmonary embolism, and after joint decision making decided to not rescan. He is to follow-up with his family doctor, and return with worsening. He was educated upon worrisome symptoms which to return, had questions whether discharge, and was discharged home in good condition. Case was discussed with the attending physician, Dr. Woods. In evaluation treatment this patient following differential diagnoses were entertained: CO, PE, pleuritic pain secondary inflammation of the palmar embolism, pneumonia, among others. Impression Primary Impression: Right-sided chest pain Additional Impressions: Shortness of breath recent pulmonry embolism Departure Information Dispostion Home / Self-Care Condition GOOD Referrals Nico Vera M.D. (PCP) Patient Instructions My [facility] Additional Instructions You were seen in the emergency department for right-sided chest pain. As we discussed this time your EKG, and heart chemical looks good. After discussing benefits versus risks, we have together decided not to pursue a CT scan of the chest at this time. It is recommended that you continue the current medications as prescribed. Please continue to rest, and engage in light duty exercise. Please follow-up with your family doctor as we discussed. Please return to emergency department with any new/concerning symptoms. Problem Qualifiers
[2016-10-29 07:36] LABS: BASO % 0.6 %; BASO ABS # 0.04 K/uL (0-0.2); COMPLETE YES; EOS % 2.6 %; HEMATOCRIT 43.6 % (42-52); IG% 0.3 %; LYMPH % 26.7 %; LYMPH ABS # 1.65 K/uL (1.2-3.4); MEAN CELL VOLUME 85.2 fL (80-100); MEAN CORPUSCULAR HEMOGLOBIN 28.9 pg (25-34); MEAN CORPUSCULAR HGB CONC 33.9 g/dl (32-36); MEAN PLATELET VOLUME 9.1 fL (7.4-10.4); MONO % 7.6 %; NEUT % 62.2 %; PLATELET COUNT 267 K/uL (130-400); RED BLOOD COUNT 5.12 M/uL (4.7-6.1); WHITE BLOOD COUNT 6.19 K/uL (4.8-10.8)
--- NOTE | 2016-10-29 07:39 | DIAGNOSTIC IMAGING REPORT ---
CHEST ONE VIEW PORTABLE CLINICAL HISTORY: 41 years-old Male presenting with NEW: Chest pain, dyspnea. Recent PE diagnosis.. TECHNIQUE: Portable upright AP view of the chest was obtained. COMPARISON: 10/23/2016. FINDINGS: Mild prominence of the cardiac silhouette. Persistent elevation of the right hemidiaphragm. Mildly low lung volumes with hypoventilatory changes. No focal infiltrate. No large effusion or pneumothorax. Osseous structures normal. Upper abdomen normal. IMPRESSION: 1. Mild apparent cardiomegaly. No other evidence of acute cardiopulmonary disease. Electronically signed by: Mario Hayward M.D. 10/29/2016 7:38 AM Dictated Date/Time: 10/29/2016 7:36 AM
[2016-10-29 07:44] LABS: INR 1.1 (0.9-1.1); PARTIAL THROMBOPLASTIN RATIO 1.1; PROTHROMBIN TIME (PATIENT) 12.3 SECONDS (9.0-12.0)
[2016-10-29 07:45] LABS: BUN/CREATININE RATIO 15.4 (10-20); CALCIUM 9.1 mg/dl (8.5-10.1); CREATININE 0.98 mg/dl (0.60-1.40); MAGNESIUM 1.9 mg/dl (1.8-2.4); POTASSIUM 3.9 mmol/L (3.5-5.1)
[2016-10-29 08:14] VITALS: BP 126/78; PULSE 58; O2SAT 94
[2016-10-29] MEDS ORDERED: OXYC-57 PO (22:14)
== END 2016-10-29 08:15 | disposition home or self-care (01) ==
LOC: C.EDB 06:46 → C.EDA 08:15
DX: R07.9 Chest pain, unspecified (principal); R06.02 Shortness of breath; Z86.711 Personal history of pulmonary embolism; Z80.9 Family history of malignant neoplasm, unspecified; Z82.49 Family history of ischemic heart disease and other diseases of the circulatory system; Z79.01 Long term (current) use of anticoagulants

== ENCOUNTER → 2016-11-05 | Outpatient (CLI) | payer OTHER ==
[~2016-11-05] MED LIST changes: -ACET-1256 PO; +OXYC-57 PO; -XRL20 PO
== END | disposition home or self-care (01) ==
LOC: C.RDSM 18:06
PROVIDERS: ATTEND Orthopaedic Surgery Sports Medicine
DX: M25.531 Pain in right wrist (principal)

== ENCOUNTER → 2016-11-08 | Outpatient (CLI) | payer OTHER ==
--- NOTE | 2016-11-08 14:47 | DIAGNOSTIC IMAGING REPORT ---
RIGHT UPPER EXTREMITY VENOUS DOPPLER HISTORY: Pulmonary embolus. Assess for DVT. COMPARISON STUDY: None. FINDINGS: The right internal jugular vein is patent. There is normal flow within the right subclavian vein. There is normal flow and compressibility within the right axillary, basilic, brachial, and visualized cephalic veins. The radial and ulnar veins were nonvisualized due to the overlying bandage. IMPRESSION: No DVT within the visualized right upper extremity. The venous structures within the right forearm were unable to be visualized due to the overlying bandage. Electronically signed by: Obie Stanley M.D. 11/08/2016 2:45 PM Dictated Date/Time: 11/08/2016 2:44 PM
--- NOTE | 2016-11-08 16:35 | ECHOCARDIOGRAM REPORT ---
*NOTICE TO RECEIVING LIBERTARIAN AGENCY This information is strictly Confidential and protected under [place] law. [place] law prohibits you from making any further disclosure of this information unless further disclosure is expressly permitted by the written consent of the person to whom it pertains or is authorized by law. A general authorization for the release of medical or other information is not sufficient for this purpose. Hospital accepts no responsibility if the information is made available to any other person, INCLUDING THE PATIENT. Interpretation Summary * Name: BULMARO MCKEON Study Date: 11/08/2016 12:53 PM * Patient Location: [facility] HR: 65 * : 1975 (M/d/yyyy) Gender: Male Height: 66 in * Age: 41 yrs Ethnicity: CA Weight: 250 lb * Ordering Physician: Nico Vera * Referring Physician: Nico Vera * Performed By: Nahomi More RCS * * Reason For Study: Cardiomegaly on chest X-ray * BSA: 2.2 m2 * -- Conclusions -- * Left ventricular systolic function is normal. * No regional wall motion abnormalities noted. * Ejection Fraction = 60-65%. * Grade I diastolic dysfunction, (abnormal relaxation pattern). * No significant valvular pathology. Procedure Details * Left Ventricle The left ventricle is normal in size. There is normal left ventricular wall thickness. Ejection Fraction = 60-65%. Left ventricular systolic function is normal. No regional wall motion abnormalities noted. * Right Ventricle The right ventricle is normal in size and function. * Atria The left atrial size is normal. Right atrial size is normal. No ASD detected; PFO is not assessed. * Mitral Valve The mitral valve anatomy is normal. * Tricuspid Valve The tricuspid valve anatomy is normal. Significant tricuspid regurgitation is absent. * Aortic Valve The aortic valve is normal in structure and function. No hemodynamically significant valvular aortic stenosis. There is no significant aortic regurgitation. * Pulmonic Valve The pulmonic valve is not well visualized. * Great Vessels The aortic root is normal size. The pulmonary is not well visualized. * Pericardium/Pleural There is no pericardial effusion. * Left Ventricular Diastolic Function Grade I diastolic dysfunction, (abnormal relaxation pattern). * * MMode 2D Measurements and Calculations * IVSd 1.1 cm * * LVIDd 5.9 cm * LVIDs 3.2 cm * LVPWd 0.80 cm * * IVS/LVPW 1.4 * FS 46.1 % * EDV(Teich) 174.2 ml * ESV(Teich) 40.7 ml * EF(Teich) 76.7 % * * EDV(cubed) 207.0 ml * ESV(cubed) 32.5 ml * EF(cubed) 84.3 % * * LV mass(C)d 225.1 grams * LV mass(C)dI 102.3 grams/m\S\2 * * SV(Teich) 133.6 ml * SI(Teich) 60.7 ml/m\S\2 * SV(cubed) 174.5 ml * SI(cubed) 79.3 ml/m\S\2 * * Ao root diam 3.1 cm * Ao root area 7.5 cm\S\2 * * LVOT diam 2.3 cm * LVOT area 4.3 cm\S\2 * * LVAd ap4 43.0 cm\S\2 * LVLd ap4 9.2 cm * EDV(MOD-sp4) 163.6 ml * EDV(sp4-el) 171.6 ml * LVAs ap4 24.5 cm\S\2 * LVLs ap4 7.2 cm * ESV(MOD-sp4) 68.9 ml * ESV(sp4-el) 70.3 ml * EF(MOD-sp4) 57.9 % * EF(sp4-el) 59.0 % * * LVAd ap2 27.3 cm\S\2 * LVLd ap2 8.3 cm * EDV(MOD-sp2) 74.0 ml * EDV(sp2-el) 75.6 ml * LVAs ap2 16.8 cm\S\2 * LVLs ap2 6.9 cm * ESV(MOD-sp2) 34.5 ml * ESV(sp2-el) 34.7 ml * EF(MOD-sp2) 53.4 % * EF(sp2-el) 54.2 % * * LVLd %diff -9.88 % * EDV(MOD-bp) 115.6 ml * LVLs %diff -4.45 % * ESV(MOD-bp) 49.2 ml * EF(MOD-bp) 57.4 % * * SV(MOD-sp4) 94.6 ml * SI(MOD-sp4) 43.0 ml/m\S\2 * * SV(MOD-sp2) 39.5 ml * SI(MOD-sp2) 17.9 ml/m\S\2 * * SV(MOD-bp) 66.3 ml * SI(MOD-bp) 30.2 ml/m\S\2 * * SV(sp4-el) 101.3 ml * SI(sp4-el) 46.1 ml/m\S\2 * * SV(sp2-el) 41.0 ml * SI(sp2-el) 18.6 ml/m\S\2 * * * Doppler Measurements and Calculations * MV E max samuel 69.8 cm/sec * MV A max samuel 96.0 cm/sec * * MV E/A 0.73 * * MV dec time 0.25 sec * * Ao V2 max 126.2 cm/sec * Ao max PG 6.4 mmHg * Ao max PG (full) 1.7 mmHg * JUAN(V,A) 3.7 cm\S\2 * JUAN(V,D) 3.7 cm\S\2 * * LV V1 max PG 4.7 mmHg * * LV V1 max 108.7 cm/sec * * TR max samuel 243.0 cm/sec * * *
== END | disposition home or self-care (01) ==
LOC: C.CPL 12:30
PROVIDERS: ATTEND Family Medicine
DX: I51.7 Cardiomegaly (principal); I26.99 Other pulmonary embolism without acute cor pulmonale

== ENCOUNTER → 2016-11-14 | Outpatient (CLI) | payer OTHER | END | disposition home or self-care (01) | LOC: C.RDSM 13:13 | PROVIDERS: ATTEND Orthopaedic Surgery | DX: S52.561 Barton's fracture of right radius (principal); X58.XXXD Exposure to other specified factors, subsequent encounter ==

== ENCOUNTER → 2016-12-19 | Outpatient (CLI) | payer OTHER | END | disposition home or self-care (01) | LOC: C.RDSM 10:29 | PROVIDERS: ATTEND Orthopaedic Surgery | DX: S52.561 Barton's fracture of right radius (principal); X58.XXXD Exposure to other specified factors, subsequent encounter ==

== ENCOUNTER → 2017-01-31 | Outpatient (CLI) | payer OTHER ==
[~2017-01-31] MED LIST changes: +OPTIRAY 320 IV PRN
--- NOTE | 2017-01-31 13:58 | DIAGNOSTIC IMAGING REPORT ---
(CHEST FOR PE) ANGIO WITH CT DOSE: 544.20 mGycm HISTORY: Chest pain dyspnea TECHNIQUE: Multiaxial CT images of the chest were performed following the intravenous administration of contrast to evaluate the pulmonary arteries. Maximal intensity projection images were also obtained. A dose lowering technique was utilized adhering to the principles of ALARA. COMPARISON STUDY: 10/24/2016 FINDINGS: There is a normal caliber thoracic aorta with no evidence for dissection. There is no evidence for pulmonary embolus. No pleural effusions. No pneumothorax. The liver and spleen are unremarkable. No mediastinal or hilar lymphadenopathy. The central airways are patent. The lungs are clear. IMPRESSION: No evidence for pulmonary embolus. The lungs are clear. All findings previously reported have resolved The above report was generated using voice recognition software. It may contain grammatical, syntax or spelling errors. Electronically signed by: Kai Vega M.D. 01/31/2017 1:57 PM Dictated Date/Time: 01/31/2017 1:51 PM
== END | disposition home or self-care (01) ==
LOC: C.CTS 13:21
PROVIDERS: ATTEND Family Medicine
DX: I26.99 Other pulmonary embolism without acute cor pulmonale (principal); R06.02 Shortness of breath

== ENCOUNTER 2017-10-26 15:18 | Emergency (ER) | payer OTHER ==
[~2017-10-26] VITALS: Ht 166.4 cm; Wt 124.3 kg
[~2017-10-26 15:18] MED LIST changes: -OPTIRAY 320 IV PRN
[2017-10-26 15:28] VITALS: TEMP 36.8; Ht 166.4 cm; Wt 124.3 kg
[2017-10-26] MEDS ORDERED: CEPHALEXIN MONOHYDRATE 250 MG CAP PO ONE (15:45)
[2017-10-26] MEDS ORDERED: LIDOCAINE/EPINEPHRINE 1% 20 ML VIAL INFIL ONE (15:45)
[2017-10-26] MEDS ORDERED: IBUP-103 PO (15:54)
[2017-10-26] MEDS ORDERED: NAPR1TAB9 PO (15:54)
[2017-10-26] MEDS ORDERED: CEPH500C PO (17:24)
[2017-10-26 17:25] VITALS: BP 132/87; PULSE 82; O2SAT 98
[2017-10-26] MEDS ORDERED: CEPHALEXIN 500MG HOME PACK 1 EA BTL PO ONE (17:30)
--- NOTE | 2017-10-26 22:22 | EMERGENCY ROOM VISIT NOTE ---
History First contact with patient: 15:41 Chief Complaint: LACERATION/CUT (SUT/DERMABOND) Stated Complaint: WILLIS LAC Nursing Triage Summary: Patient ambulatory to triage with . PAtient states he fell at work this morning causing deep lac to left willis area. PAtient was seen at [facility] and sent to ED due to deep tissue lac. History of Present Illness The patient is a 42 year old male who presents to the Emergency Room with complaints of a deep laceration to the left willis. The patient reports that he tripped and fell against a piece of angle iron this morning. This injury happened in a barn. The patient reports that there was not any gross manure or petroleum contamination. He was seen at the [facility] urgent care center where an x-ray was performed and was normal. He reports that the doctor probe the wound and stated that there was a large opening under the tissue, and suggested that he come to the emergency department for further reevaluation. The patient was not provided a prescription for an antibiotic prior to leaving their facility. He denies any significant pain, especially with weightbearing, rating his discomfort a 2 out of 10. Tetanus immunization is up-to-date. Review of Systems 10 system review was performed and was negative except for pertinent positives and negatives as indicated in history of present illness Past Medical/Surgical History Medical Problems: (1) Pulmonary embolism Family History FHx: cancer Heart disease Social History Smoking Status: Never Smoker Drug Use: none Marital Status: Housing Status: lives with significant other Occupation Status: employed Current/Historical Medications Scheduled Cephalexin Monohydrate (Keflex), 500 MG PO QID Scheduled PRN Naproxen (Aleve), 220 MG PO DAILY PRN for Pain Physical Exam Vital Signs Date Time Temp Pulse Resp B/P (MAP) Pulse Ox O2 Delivery O2 Flow Rate FiO2 10/26/17 17:25 82 16 132/87 98 Room Air 10/26/17 15:28 36.8 57 20 117/76 96 Room Air Physical Exam CONSTITUTIONAL: Healthy and well nourished. Alert and oriented X 3 with positive affect. Patient does not appear in any acute distress. HEENT: Normocephalic, atraumatic. Pupils equal, round and reactive. NECK: Full active range of motion without discomfort. MUSCULOSKELETAL: Examination of the left anterior leg shows a 3.5 cm V-shaped laceration without any active bleeding, hematoma formation or significant wound contamination. Varus and valgus stress on the leg does not cause any discomfort. Patient also has no worsening discomfort with plantar flexion or dorsiflexion of the ankle. Pedal pulses are intact. INTEGUMENTARY: No rash or other significant dermatologic conditions noted. NEUROLOGIC: No focal neurologic deficits noted. Left lower extremity is sensory intact. Medical Decision & Procedures ER Provider Diagnostic Interpretation: I did personally review x-ray images that accompanied the patient on CD. Review of x-rays does not show any obvious cortical fractures or radiopaque foreign debris within the wound. Medications Administered Medications (Trade) Dose Ordered Sig/Efe Route Start Time Stop Time Status Last Admin Dose Admin Cephalexin Monohydrate (Keflex Cap) 500 mg NOW ONCE PO 10/26/17 15:45 10/26/17 15:46 DC 10/26/17 15:57 500 MG Cephalexin Monohydrate (Keflex 500MG Home Pack) 1 homepack NOW ONCE PO 10/26/17 17:30 10/26/17 17:31 DC 10/26/17 17:39 1 HOMEPACK Procedure Wound irrigation, probing and repair was performed under local anesthesia after receiving verbal consent from the patient. Using lidocaine 1% with epinephrine , good local anesthesia was administered. The wound was then irrigated using a [place] pulse lavage with a liter of normal saline. Exploration of the wound does not show any underlying I was unable to visualize any other underlying fascial planes as this is more of a puncture wound. The wound was then approximated using 4-0 nylon simple interrupted sutures. A bacitracin dressing was applied. ED Course Patient history and physical exam were performed. Nurse's notes were reviewed. Vital signs were reviewed and were normal. Pressure lavage irrigation was performed of the wound under local anesthesia prior to closure with sutures. The patient was provided a home pack and prescription for Keflex. He was encouraged to intermittently apply ice to the region. Ibuprofen or Tylenol as needed for pain. Suture removal in 12-14 days, or seek reevaluation sooner for any signs of infection. The patient was happy with plan of care, voiced understanding of all discharge instructions, and denied any pain at the conclusion of my exam. Medical Decision Medication Reconcilliation Current Medication List: was personally reviewed by me Blood Pressure Screening Patient's blood pressure: Normal blood pressure Impression Primary Impression: Laceration of left leg Departure Information Dispostion Home / Self-Care Condition GOOD Prescriptions Cephalexin Monohydrate (Keflex) 500 Mg Cap 500 MG PO QID for 6 Days, #24 CAP Prov: Josh Umana PA 10/26/17 Forms HOME CARE DOCUMENTATION FORM, IMPORTANT VISIT INFORMATION Patient Instructions My [facility] Additional Instructions Complete all Keflex antibiotics as prescribed. Keep wound clean and dry. Do not allow any crusting or dried blood to accumulate on sutures. If this occurs, use a 1:1 solution of hydrogen peroxide/ water on a Q-tip to clean the wound. Use an antibiotic ointment for 3-4 days, then let wound dry. Suture removal in 12-14 days. Return sooner for any signs of infection (increasing redness, swelling, drainage). Ice and elevate for swelling and pain. Ibuprofen 800 mg and/or Tylenol 1000 mg every 8 hours. You may also alternate these medications for more effective pain relief: Ibuprofen --4 HRS--> Tylenol --4 HRS--> ibuprofen --4 HRS--> Tylenol .... Return to the emergency department for any signs of developing infection. Problem Qualifiers Primary Impression: Laceration of left leg Encounter type: initial encounter Qualified Codes: S81.812A - Laceration without foreign body, left lower leg, initial encounter
== END 2017-10-26 17:52 | disposition home or self-care (01) ==
LOC: C.EDB 15:19 → C.EDD 17:52
DX: S81.812A Laceration without foreign body, left lower leg, initial encounter (principal); W01.118A Fall on same level from slipping, tripping and stumbling with subsequent striking against other sharp object, initial encounter; Z86.711 Personal history of pulmonary embolism; Z80.9 Family history of malignant neoplasm, unspecified

== ENCOUNTER → 2017-11-06 | Outpatient (CLI) | payer OTHER ==
[~2017-11-06] MED LIST changes: +NAPR1TAB9 PO; -OXYC-57 PO; -XRL15 PO
--- NOTE | 2017-11-06 17:58 | DIAGNOSTIC IMAGING REPORT ---
ULTRASOUND L VENOUS DOPP LOWER EXT UNILAT CLINICAL HISTORY: Left leg pain and swelling. History of prior DVT. COMPARISON STUDY: No previous studies for comparison. FINDINGS: Real-time and color flow Doppler imaging were performed. Flow was seen within the femoral, popliteal and calf veins with no intraluminal thrombus demonstrated. The saphenous vein is patent. IMPRESSION: No evidence of left lower extremity DVT. Electronically signed by: Nico Mckeon M.D. 11/06/2017 5:57 PM Dictated Date/Time: 11/06/2017 5:56 PM
== END | disposition home or self-care (01) ==
LOC: C.ULTR 17:05
PROVIDERS: ATTEND Family Medicine
DX: M79.605 Pain in left leg (principal); R60.0 Localized edema; Z86.718 Personal history of other venous thrombosis and embolism

== ENCOUNTER 2018-04-27 12:00 | Inpatient (IN) ==
[2018-04-27] MEDS ORDERED: VANCOMYCIN CONSULT ACTIVE PRN (12:08)
--- NOTE | 2018-04-27 12:30 | History & Physical Report ---
Date of Service April 27, 2018 Assessment & Plan (1) Cellulitis of left lower leg: He is being admited to the hospital today from our office. We will get an MRI of the lower leg to look for an abscess. We will consult infectious disease service and start him on some IV vanco. NPO after midnight and he was placed on the OR schedule for I and D of the left lower leg. Labs are pending. Gaston's and scd's for dvt prophylaxis. He can WBAT. History of Present Illness Chief Complaint: Left lower extremity pain, redness, swelling Primary Care Provider: Nico Ilene Gotti is a 43 y/o male being admitted with left lower extremity cellulitis. 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 He was wearing pants at the time and it did not puncture the pants. His wound was sutured in the ER and he was given keflex. After the stitches were removed the wound opened up again and began draining. We initially saw him then in December 2017 and he was on bactrim and keflex for approximately 2 weeks. Approx 3 months ago he did have an I and D with Dr. Langley and did well post op from this. Cultures at that time showed peptostreptococcus. He presented today to clinic with increased pain, redness, and swelling of the left lower leg. 3 days ago he began to feel ill with a fever, aches, and joint pain. Friday he developed the redness and swelling of his leg and went to the ER. He was given IV ceftriaxone and discharged home on keflex and bactrim. He does have a history of a PE in the past, was on xarelto, but is now off that. Allergies Allergy/AdvReac Type Severity Reaction Status Date / Time No Known Allergies Allergy Verified 04/25/18 20:08 Home Medications Home Medications Medication Instructions Recorded Confirmed Type cephalexin [Keflex] 500 mg PO QID 10 Days #40 cap 04/25/18 Rx sulfamethoxazole-trimethoprim 1 tab PO Q12H 10 Days #20 tab 04/25/18 Rx [Bactrim DS] Past Med/Surg History Family History Grandfather Family history of diabetes mellitus Father Family history of diabetes mellitus Social History Current Living Situation: Family Feels Safe at Home: Yes Smoking Status: Never smoker Second Hand Exposure: No Hx Alcohol Use: Yes Alcohol type: beer Alcohol Intake Frequency: holidays/ special occasions only Hx Substance Use: No Beliefs That Will Affect Care: None Preferred Language: [place] Communication Ability: Effective Physical Exam 2 Respiratory: normal respiratory effort, lungs clear to auscultation Cardiovascular: Rate/Rhythm: regular rate and regular rhythm Musculoskeletal: He has obvious swelling and redness of his left lower leg. Tender to palpation mostly anteriorly. He has a scar from the previous wound but no active drainage. He is able to DF/PF
--- NOTE | 2018-04-27 13:43 | Anesthesiology Consultation ---
Date of Service April 27, 2018 Assessment & Plan Chart Review Chart Review: Acceptable Risk for Surgery and Patient NOT seen in Pre Admission Testing Noticed patient had potassium of 3 on his labs from this inpatient admission. Spoke with primary team about starting potassium replacement and recheck PRP in AM. Primary ortho team agreed. Consults Requested none History Surgery Operation Date: 04/28/18 12:30 Proposed Procedures p Left Leg Abcess Incision and Drainage - Avinash Rodriguez MD Height/Weight Height: 5 ft 6 in Weight: 126.1 kg Allergies Allergy/AdvReac Type Severity Reaction Status Date / Time No Known Allergies Allergy Verified 04/25/18 20:08 Medications Home Medications Medication Instructions Recorded Confirmed Last Taken cephalexin [Keflex] 500 mg PO QID 10 Days #40 cap 04/25/18 04/27/18 04/27/18 09: 00 sulfamethoxazole-trimethoprim 1 tab PO Q12H 10 Days #20 tab 04/25/18 04/27/18 09:00 [Bactrim DS] Past Medical History Medical History Cellulitis of left anterior lower leg (Inactive) History of pulmonary embolism 2017= XARELTO X 4 MONTHS; NO ISSUES SINCE Leg wound, left REASON FOR PROCEDURE; LLE CELLULITIS S/P ANTIBIOTICS Morbid obesity Snoring NO SLEEP STUDY Past Surgical History Surgical History History of incision and drainage LLE. 01/20/2018. Done by Dr. Langley at [facility]. LMA #5. no issues. History of open reduction and internal fixation (ORIF) procedure RIGHT WRIST X 2; RIGHT WRIST ORIF= 11/04/16= LMA#5 AT [facility] Social History Smoking Status: Never smoker Hx Alcohol Use: Yes Alcohol type: beer alcohol intake frequency: holidays/special occasions only Hx Substance Use: No substance use type: does not use Physical Exam Vital Signs Last Vital Signs Temp 36.8 C 04/27/18 13:25 Pulse 100 H 04/27/18 13:25 Resp 15 04/27/18 13:25 BP 156/91 H 04/27/18 13:25 Pulse Ox 97 04/27/18 13:25 Testing Electrocardiogram Date: 01/16/18 Findings: + NSR @ (72) Normal sinus rhythm Possible Inferior infarct , age undetermined Abnormal ECG When compared with ECG of 29-OCT-2016 07:02, Borderline criteria for Inferior infarct are now Present Confirmed by GREGG CORTEZ ([id number]) on 01/16/2018 4:48:36 PM Laboratory Results Laboratory Tests 04/25/18 04/25/18 20:14 20:14 WBC 11.17 H Hgb 13.7 L Hct 40.0 L Plt Count 237 Sodium 136 Potassium 3.0 L Chloride 102 Carbon Dioxide 28 BUN 15 Creatinine 1.03 Glucose 97
[2018-04-27] MEDS ORDERED: POTASSIUM CHLORIDE 20 MEQ TABCR PO STA (13:52)
[2018-04-27] MEDS ORDERED: VANCOMYCIN HCL 2,750 MG in SODIUM CHLORIDE 0.9% 500 ML IV ONE (14:00)
--- NOTE | 2018-04-27 15:06 | Pharmacy Report ---
Pharmacy Abx Initial Consult - Date of Service April 27, 2018 - Pharmacy Dosing Scope Date of Consult: 04/27 Consultation requested by: Cristiano Church PA-C Pharmacy is consulted to initiate vancomycin IV/PO dosing therapy, order appropriate labs and adjust drug dose/frequency. - Subjective The patient is a 43 year old M admitted on 04/27/18 13:03. - Objective Height: 5 ft 6 in Weight: 126.1 kg Vital Signs (Past 12hrs): Vital Signs Temp Pulse Resp BP Pulse Ox 04/27/18 14:59 37.3 C 86 18 133/80 98 04/27/18 13:25 36.8 C 100 H 15 156/91 H 97 - Risk Factors for Resistance * Antimicrobial use within the last 90 days [include specific drugs, if known] - Assessment & Plan Assessment 43 year old M direct admit for left lower extremity cellulitis. Previous laceration on left lower leg from steel gate, previously treated with bactrim/ keflex. I&D about 3 months ago. Patient with fever, aches. Seen in ED 04/25 given rocephin, keflex/bactrim on discharge, presented with worsening in office today. Starting vancomycin for empiric coverage of cellulitis. Plan vancomycin for treatment of cellulitis Vancomycin IV * Estimated PK Parameters: Vd 0.55 L/kg * Loading dose: 2750 mg (21 mg/kg) * Maintenance dose: 1500 mg q12H * SCr from 04/25 1.03, CrCl est. 115, expect overestimation of renal function, BMI >35. New SCr ordered for tonight, Started conservative dose due to likelihood of drug accumulation in obese patient. * Goal trough level 15-20 mcg/mL * Will order trough after dose assessed for current renal function. Pharmacy will continue to follow and will adjust dose/frequency as necessary. Thank you.
--- NOTE | 2018-04-27 15:09 | Infectious Disease Consult ---
Date of Consultation April 27, 2018 Assessment & Plan (1) Cellulitis of left lower leg: Patient with left leg cellulitis with possible abscess formation. Will give patient vancomycin and ceftriaxone pending further culture results. Await MRI scan to determine need for surgical intervention. Will follow. History of Present Illness Reason for Consultation: Left lower extremity infection Attending Physician: Avinash Rodriguez MD History of Present Illness 43-year-old male with history of pulmonary embolism, morbid obesity, who developed infection of left leg last summer trauma to his left leg. Had chronic draining wound and ultimately was hospitalized with abscess formation requiring incision and cultures at that time grew Peptostreptococcus. Now presents with several days of progressively worsening redness and swelling of his left leg with pain especially at the site of previous abscess. Was seen in the emergency department given a dose of IV antibiotics and sent home with oral cephalexin and Bactrim but redness and swelling and pain worsened patient with fever and chills and so was admitted to the hospital for further management. MRI is pending. Patient currently on vancomycin. Allergies Allergy/AdvReac Type Severity Reaction Status Date / Time No Known Allergies Allergy Verified 04/25/18 20:08 Home Medications Home Medications Medication Instructions Recorded Confirmed Type cephalexin [Keflex] 500 mg PO QID 10 Days #40 cap 04/25/18 04/27/18 Rx sulfamethoxazole-trimethoprim 1 tab PO Q12H 10 Days #20 tab 04/25/18 04/27/18 Rx [Bactrim DS] Patient History Medical History Cellulitis of left anterior lower leg (Inactive) History of pulmonary embolism 2017= XARELTO X 4 MONTHS; NO ISSUES SINCE Leg wound, left REASON FOR PROCEDURE; LLE CELLULITIS S/P ANTIBIOTICS Morbid obesity Snoring NO SLEEP STUDY Surgical History History of incision and drainage LLE. 01/20/2018. Done by Dr. Langley at [facility]. LMA #5. no issues. History of open reduction and internal fixation (ORIF) procedure RIGHT WRIST X 2; RIGHT WRIST ORIF= 11/04/16= LMA#5 AT [facility] Family History Grandfather Family history of diabetes mellitus Father Family history of diabetes mellitus Social History Current Living Situation: Family Other Information That Helps Us Care for You: No Feels Safe at Home: Yes Safety Concerns: Feels Safe At This Time Smoking Status: Never smoker Second Hand Exposure: No Hx Alcohol Use: Yes Alcohol type: beer Alcohol Intake Frequency: holidays/ special occasions only Hx Substance Use: No Beliefs That Will Affect Care: None Preferred Language: Swedish Communication Ability: Effective Last Model Department Supervisor Required: No Review of Systems All systems were reviewed and are negative except as per HPI Physical Exam 2 Vital Signs (Past 24 Hours): Last Vital Signs Temp 37.3 C 04/27/18 14:59 Pulse 86 04/27/18 14:59 Resp 18 04/27/18 14:59 BP 133/80 04/27/18 14:59 Pulse Ox 98 04/27/18 14:59 Constitutional: WD/WN, vitals as above + morbidly obese and comfortable; no acute distress Eyes: PERRL, conjunctivae normal, anicteric sclerae ENMT: external ear and nose normal, oropharynx normal Neck: trachea midline, no thyromegaly neck nontender Respiratory: normal respiratory effort, lungs clear to auscultation normal percussion; does not use accessory muscles Cardiovascular: Rate/Rhythm: regular rate and regular rhythm Heart Sounds: normal S1 and normal S2; no gallop, no murmur and no cardiac rub Vessels: normal peripheral pulses; no JVD Gastrointestinal (Abdomen): normal bowel sounds, soft, nontender, no hepatosplenomegaly Musculoskeletal: no cyanosis or clubbing, extremities motor strength 5/5 Spine: thoracic spine normal to inspection and lumbar spine normal to inspection ; no cervical spinal tenderness Left leg swelling Skin: normal turgor; no rashes Erythema left lower extremity to above the knee Neurologic: patellar DTR's 2+ bilat, sensation intact no focal motor deficits Psychiatric: A+Ox3, euthymic affect Orientation: cooperative Lymphatic: no cervical or axillary lymphadenopathy no inguinal lymphadenopathy
[2018-04-27] MEDS: cefTRIAXone SODIUM 2,000 MG in DEXTROSE 5% 50 ML IV SCH (16:43)
--- NOTE | 2018-04-27 19:04 | Magnetic Resonance Report ---
MRI OF THE LEFT LOWER LEG WITHOUT CONTRAST CLINICAL HISTORY: Left leg infection. Abscess. Left leg surgery January 2018. COMPARISON STUDY: Left lower extremity ultrasound December 12, 2017 and left tibia and fibula radio graphs April 25, 2018. TECHNIQUE: Utilizing a 1.5 Gabriela magnet, multiplanar, multiecho imaging of the left lower leg was per formed without intravenous contrast. FINDINGS: There is no marrow edema or marrow replacement within the left tibia or fibula. There is no evidence for osteomyelitis. Moderate subcutaneous fluid within the left lower leg is noted. There is no intramuscular fluid. Note is made of a 6.7 x 6.5 x 1.9 cm fluid collection within the subcutaneou s tissues overlying the fascia of the anterior proximal left lower leg which may correspond to the fl uid collection shown on ultrasound of December 12, 2017. This contains a few foci of susceptibility biliary artifact which may be postsurgical. There is also suggestion of a tract extending to the skin which may reflect a laceration or incision. No additional fluid collections are present. This fluid collection is T2 hyperintense and T1 hypointense with apparent septations. IMPRESSION: 1. 6.7 x 6.5 x 1.9 cm fluid collection within the subcutaneous tissues of the anterior proximal left lower leg which may correspond to the fluid collection shown on ultrasound of December 12, 2017. St erility cannot be assessed by MRI and this may reflect a seroma, resolving hematoma or abscess. 2. Moderate subcutaneous fluid of the left lower leg which may reflect cellulitis or edema. 3. No evidence for osteomyelitis within the left tibia or fibula. Electronically signed by: Patrick Salas M.D. 04/27/2018 7:03 PM
[2018-04-27 20:00] LABS: Basophils # (auto) 0.02 K/uL (0-0.2); Basophils % (auto) 0.2 %; Eosinophils # (auto) 0.07 K/uL (0-0.5); Eosinophils % (auto) 0.6 %; Hematocrit (blood only) 36.1 % (42-52); Hemoglobin 12.1 g/dL (14.0-18.0); Immature Granulocytes # (auto) 0.03 K/uL (0.00-0.02); Immature Granulocytes % (auto) 0.3 %; Lymphocytes # (auto) 1.39 K/uL (1.2-3.4); Lymphocytes % (auto) 12.5 %; Mean Corpuscular Hgb Conc 33.5 g/dL (32-36); Mean Corpuscular Volume 85.3 fL (80-100); Mean Platelet Volume 8.9 fL (7.4-10.4); Monocytes # (auto) 1.03 K/uL (0.11-0.59); Monocytes % (auto) 9.3 %; Neutrophils # (auto) 8.57 K/uL (1.4-6.5); Neutrophils % (auto) 77.1 %; Platelet Count 245 K/uL (130-400); RDW Coefficient of Variation 14.4 % (11.5-14.5); RDW Standard Deviation 45.1 fL (36.4-46.3); Red Blood Count 4.23 M/uL (4.7-6.1); White Blood Count 11.11 K/uL (4.8-10.8)
[2018-04-27] MEDS ORDERED: POTASSIUM CHLORIDE 20 MEQ TABCR PO ONE (20:00)
[2018-04-27 20:25] LABS: BUN Creatinine Ratio 10.3 (10-20); C Reactive Protein 17.3 mg/dl (0-0.29); Calcium 8.1 mg/dl (8.5-10.1); Creatinine Clr Calc Pharmacy 98.6 ml/min; Est GFR (African American) 84.7; Est GFR (Non-African American) 73.1; Potassium 3.7 mmol/L (3.5-5.1)
[2018-04-28] MEDS: VANCOMYCIN HCL 1,500 MG in SODIUM CHLORIDE 0.9% 500 ML IV SCH ×2 (02:18→17:17)
[2018-04-28 07:10] LABS: Creatinine Clr Calc Pharmacy 120.7 ml/min; Est GFR (African American) 108.2; Est GFR (Non-African American) 93.4; Potassium 3.9 mmol/L (3.5-5.1)
[2018-04-28] MEDS: SODIUM CHLORIDE 0.9% 1000ML 1,000 ML IV SCH ×2 (09:13→23:56)
[2018-04-28] MEDS ORDERED: ONDANSETRON INJ 2 MG/ML 2 ML VIAL IV PRN (12:03)
[2018-04-28] MEDS ORDERED: fentaNYL citrate 100 MCG/2 ML VIAL IV PRN (12:03)
[2018-04-28] MEDS ORDERED: PROMETHAZINE HCL 12.5 MG in SODIUM CHLORIDE 0.9% 50 ML IV PRN (12:03)
[2018-04-28] MEDS ORDERED: ePHEDrine sulfate 50 MG/ML AMP IV PRN (12:03)
[2018-04-28] MEDS ORDERED: HYDROmorphone INJ 1 MG/ML SYRINGE IV PRN (12:03)
[2018-04-28] MEDS ORDERED: ATROPINE SULFATE 0.1 MG/ML 10ML SYR IV PRN (12:03)
[2018-04-28] MEDS ORDERED: PHENYLEPHRINE 100MCG/ML 5ML SYR IV PRN (12:03)
[2018-04-28] MEDS ORDERED: BACITRACIN INJ 50,000 UNIT VIAL ONE (12:20)
[2018-04-28] MEDS ORDERED: fentaNYL citrate 100 MCG/2 ML VIAL ONE ×2 (12:51→13:57)
[2018-04-28] MEDS ORDERED: ONDANSETRON INJ 2 MG/ML 2 ML VIAL ONE (12:51)
[2018-04-28] MEDS ORDERED: DEXAMETHASONE SOD INJ 4 MG/ML VIAL ONE (12:51)
[2018-04-28] MEDS ORDERED: LIDOCAINE HCL 2% 2 ML VIAL/AMP(20MG/ML) INFIL ONE (12:51)
[2018-04-28] MEDS ORDERED: PROPOFOL IV EMULSION 10 MG/ML 20 ML VIAL IV ONE (12:51)
[2018-04-28] MEDS ORDERED: MIDAZOLAM HCL 1 MG/ML 2ML VIAL ONE (12:51)
--- NOTE | 2018-04-28 13:19 | History & Physical Bridge Note ---
Date of Service April 28, 2018 History & Physical Bridge Note I have examined the patient, reviewed the History & Physical and in the interval since the performance of the History & Physical I have noted the following changes of clinical significance: no changes noted
--- NOTE | 2018-04-28 13:32 | Progress Note ---
DATE: 04/28/2018 SUBJECTIVE: A 43-year-old gentleman admitted with left lower extremity cellulitis and possible abscess. He is doing okay. Symptoms are essentially unchanged. He has not been feeling ill overnight or today. No new complaints. OBJECTIVE: VITAL SIGNS: Temperature 36.9. Vital signs stable. GENERAL: Physical examination shows a healthy, pleasant, middle-aged male. He is lying in bed, looks reasonably comfortable. EXTREMITIES: Examination of the left lower extremity reveals markedly swollen left lower extremity from the tibial tubercle distally to the ankle. He has got what looks to be a fluctuant area anteriorly over his tibia. There is no drainage. He does have cellulitis circumferentially, but compartments are soft. He is neurologically intact. MRI: MRI is reviewed. It looks to be a fluid pocket over the anterior aspect of the tibia on the front of the leg just around the area of the fluctuance. No other abscess or fluid pockets. ASSESSMENT: A 43-year-old gentleman status post a left leg wound and previous I and D with recurrent lower extremity cellulitis, likely abscess. PLAN: We talked about treatment. This abscess really needs to be drained. We are going to take him to the operating room today and do an I and D. We will likely pack this and then place a wound VAC tomorrow. Will continue IV antibiotics. Infectious disease has been consulted. Will use DVT prophylaxis including thigh-high TEDs, SCDs, and begin a baby aspirin postoperatively twice a day. Informed consent was obtained.
--- NOTE | 2018-04-28 14:22 | Post Operative Brief Note ---
Immediate Post Op Note v1 Date of Surgery April 28, 2018 Pre & Post Diagnosis Operation Date: 04/28/18 12:30 Pre-Op Diagnosis: CELLULITIS LEFT LOWER EXTREMITY with Abscess Post-Op Diagnosis: CELLULITIS LEFT LOWER EXTREMITY with Abscess Procedure Operation Date: 04/28/18 12:30 Actual Procedures p Left Leg Abscess Incision and Drainage(Left) - Avinash Rodriguez MD Surgeon Avinsah Rodriguez MD Ferry Engineer Ranjit, KESHIA Estimated Blood Loss 5 Findings Consistent with Post-Op Diagnosis Fluids 650 cc Specimens Fluid for Culture Tissue for Culture Anesthesia Type General Complications none Disposition Accompanied Patient To Recovery: Yes Disposition: Recovery Room
--- NOTE | 2018-04-28 15:10 | Anesthesiology Progress Note ---
Date of Service April 28, 2018 Anesthesia Post Procedure Vital Signs Vital Signs: Temp Pulse Resp BP Pulse Ox 04/28/18 15:00 36.7 C 74 18 139/71 93 04/28/18 14:50 78 18 141/84 H 94 04/28/18 14:40 75 18 143/79 H 97 04/28/18 14:30 82 18 144/78 H 100 04/28/18 14:23 36.6 C 86 18 137/81 96 04/28/18 12:22 36.9 C 80 20 145/88 H 96 04/28/18 07:01 36.8 C 81 18 131/80 95 04/27/18 22:46 37.3 C 88 16 141/82 H 95 Pain Intensity Right Leg: Pain Intensity: 4 Notes Mental Status: alert / awake / arousable and participated in evaluation Patient Amnestic to Procedure: Yes Nausea / Vomiting: adequately controlled Pain: adequately controlled Airway Patency, RR, SpO2: stable & adequate BP & HR: stable & adequate Hydration State: stable & adequate Anesthetic Complications: no major complications apparent and Pt Satisfied with anesthetic care
[2018-04-28] MEDS ORDERED: MAGNESIUM HYDROXIDE SUSP 30 ML UDC PO PRN (15:35)
[2018-04-28] MEDS ORDERED: BISACODYL 10 MG SUPP PR PRN (15:35)
[2018-04-28] MEDS ORDERED: KETOROLAC 30 MG/ML VIAL IV PRN (15:35)
[2018-04-28] MEDS: cefTRIAXone SODIUM 2,000 MG in DEXTROSE 5% 50 ML IV SCH (16:08)
[2018-04-28] MEDS: ACETAMINOPHEN 500 MG TAB PO PRN (17:17)
[2018-04-28] MEDS: DOCUSATE SODIUM 100 MG CAP PO SCH (21:06)
[2018-04-28] MEDS: ASPIRIN 81 MG ECTAB PO SCH (21:06)
--- NOTE | 2018-04-28 23:53 | Operative Report ---
DATE OF OPERATION: 04/28/2018 SURGEON: Avinash Rodriguez MD CATTLE STICKER: ISREAL Sinclair PREOPERATIVE DIAGNOSIS: Left leg abscess with surrounding cellulitis. POSTOPERATIVE DIAGNOSES: Left leg abscess with surrounding cellulitis. PROCEDURE PERFORMED: Irrigation and debridement of left leg abscess. COMPLICATIONS: None. ESTIMATED BLOOD LOSS: 5 mL FLUID REPLACEMENT: 650 mL crystalloid fluid replacement. TOURNIQUET TIME: 15 minutes at 350 mmHg. ANESTHESIA: General. SPECIMENS: 1. Left abscess fluid sent for stat gram stain, aerobic, and anaerobic culture. 2. Left abscess tissue sent for tissue culture. OPERATIVE INDICATIONS: The patient is a 43-year-old male ortiz who injured his left leg back in October and had a puncture wound. He has been treated with recurrent bouts of cellulitis and actually had an irrigation and debridement done by Dr. Langley in January of last year. It seem to heal this up and then just over the weekend he developed increased pain, discomfort, swelling, redness, fevers, and just gentle illness. The day he was seen in the ER, we put him on some antibiotics. Clinically, seems to be doing a little bit better but had marked cellulitis in his left leg. We got an MRI, which revealed an abscess. No sign of Osteomyelitis on MRI. The patient indicated for irrigation and debridement. OPERATIVE FINDINGS: Operative findings revealed a fluid-filled pocket consistent with an abscess in the anterior aspect of his upper willis just below his tibial tubercle measuring about 10 x about 7 cm. It did not penetrate the fascia. OPERATIVE PROCEDURE: The patient taken to the operating room, identified, and placed on the operating table in supine position. All contact areas were appropriately padded. The patient had been receiving IV antibiotics in the floor. A general anesthetic was implemented by anesthesia team. Left thigh tourniquet was then placed. The left leg was then scrubbed with Hibiclens and then prepped with ChloraPrep and draped in usual sterile fashion. Left leg was elevated but not exsanguinated. The tourniquet was placed at 350 mmHg. About 10-cm incision was made over the area of the proposed abscess. I sharply dissected directly down to the abscess fluid. We did send some fluid off for stat gram stain, aerobic and anaerobic culture. I took some of the tissue and sent this off for tissue culture. I then exposed the entire contents of the abscess. I used a curette to curette all loose debris and then a rongeur to further debride this. I irrigated the wound extensively with 6 L of pulsatile lavage solution. Once this was complete, I changed my gloves. The tourniquet was let down for a tourniquet time of 15 minutes. Hemostasis was assured using electrocautery. I then packed the wound with Betadine-soaked Kerlix wrap followed by 4 x 4's. We then dressed this with ABD pad followed by a Kerlix wrap, sterile cast padding, and Star bandage. The patient then brought out of general anesthesia and transferred to the recovery room in stable condition. The patient tolerated the procedure well with no complication. All needle and sponge counts were correct at the end of the operation. I attest to the content of the Intraoperative Record and any orders documented therein. Any exceptions are noted below. SYDNEY
[2018-04-28] MEDS: OXYCODONE HCL IR 5 MG TAB (IMMEDIATE RELEASE) PO PRN (23:56)
[2018-04-29] MEDS: VANCOMYCIN HCL 1,500 MG in SODIUM CHLORIDE 0.9% 500 ML IV SCH (03:20)
[2018-04-29 06:56] LABS: Creatinine Clr Calc Pharmacy 134.4 ml/min; Est GFR (African American) 121.1; Est GFR (Non-African American) 104.5
[2018-04-29] MEDS: PANTOprazole 40 MG TAB PO SCH (08:36)
[2018-04-29] MEDS: ASPIRIN 81 MG ECTAB PO SCH ×2 (08:36→21:10)
[2018-04-29] MEDS: DOCUSATE SODIUM 100 MG CAP PO SCH ×2 (08:36→21:10)
[2018-04-29] MEDS: OXYCODONE HCL IR 5 MG TAB (IMMEDIATE RELEASE) PO PRN ×3 (09:00→18:19)
[2018-04-29] MEDS ORDERED: VANCOMYCIN TROUGH ONE (13:30)
--- NOTE | 2018-04-29 14:52 | Pharmacy Report ---
Pharmacy Abx Dose Short Note - Date of Service April 29, 2018 - Assessment & Plan Assessment 43 year old M receiving Vancomycin + Ceftriaxone for treatment of cellulitis of left lower leg, possible abscess formation Day # 3 of antimicrobial therapy. Plan Vancomycin * Trough level of 9.2 mcg/mL is slightly subtherapeutic. * Anticipate trough level to continue to rise with vancomycin accumulation with obesity. * Continue dose of 1500 mg IV every 12 hours * Goal trough level for cellulitis : 10 to 20 mcg/mL depending on c/s * Trough level ordered for: 05/01/17 at 1330 Pharmacy will continue to follow and will adjust dose/frequency as necessary. Thank you.
[2018-04-29] MEDS ORDERED: VANCOMYCIN HCL 1,500 MG in SODIUM CHLORIDE 0.9% 500 ML IV ONE (15:00)
--- NOTE | 2018-04-29 15:06 | Wound Consultation ---
Date of Consultation April 29, 2018 Assessment & Plan (1) Cellulitis of left lower le. Continue antibiotics per Dr. Gonzales. 2. We will place a wound VAC with silver pad. 3. We will follow patient in the clinic. Thank you for the consult please do not hesitate to call with any questions. History of Present Illness Reason for Consultation: surgical wound Requesting Physician: Avinash Rodriguez Attending Physician: Avinash Rodriguez MD History of Present Illness 43-year-old male with a history of pulmonary embolism, morbid obesity who developed infection of his left leg last summer secondary to trauma to his left leg. He had a chronic draining wound and ultimately was hospitalized with abscess formation requiring surgical incision and drainage. Cultures at that time grew Peptostreptococcus. He reports that in a few days ago with several days of worsening pain, swelling and redness of the left lower leg. Was given dose of IV antibiotics and sent home with Keflex and Bactrim. Followed up with orthopedics and was admitted to the hospital. This time he is status post I&D. Allergies Allergy/AdvReac Type Severity Reaction Status Date / Time No Known Allergies Allergy Verified 04/25/18 20:08 Home Medications Home Medications Medication Instructions Recorded Confirmed Type cephalexin [Keflex] 500 mg PO QID 10 Days #40 cap 04/25/18 04/27/18 Rx sulfamethoxazole-trimethoprim 1 tab PO Q12H 10 Days #20 tab 04/25/18 04/27/18 Rx [Bactrim DS] Patient History Medical History Cellulitis of left anterior lower leg (Inactive) History of pulmonary embolism 2017= XARELTO X 4 MONTHS; NO ISSUES SINCE Leg wound, left REASON FOR PROCEDURE; LLE CELLULITIS S/P ANTIBIOTICS Morbid obesity Snoring NO SLEEP STUDY Surgical History History of incision and drainage LLE. 01/20/2018. Done by Dr. Langley at [facility]. LMA #5. no issues. History of open reduction and internal fixation (ORIF) procedure RIGHT WRIST X 2; RIGHT WRIST ORIF= 11/04/16= LMA#5 AT [facility] Family History Grandfather Family history of diabetes mellitus Father Family history of diabetes mellitus Social History Current Living Situation: Family Other Information That Helps Us Care for You: No Feels Safe at Home: Yes Safety Concerns: Feels Safe At This Time Smoking Status: Never smoker Second Hand Exposure: No Hx Alcohol Use: Yes Alcohol type: beer Alcohol Intake Frequency: holidays/ special occasions only Hx Substance Use: No Beliefs That Will Affect Care: None Communication Ability: Effective Review of Systems 10 point review of systems negative except per HPI Physical Exam 2 Vital Signs (Past 24 Hours): Last Vital Signs Temp Pulse Resp BP Pulse Ox 36.5 C 91 H 18 147/83 H 97 04/29/18 15:00 04/29/18 15:00 04/29/18 15:00 04/29/18 15:00 04/29/18 15:00 Constitutional: WD/WN, vitals as above Respiratory: normal respiratory effort, lungs clear to auscultation Cardiovascular: RRR, no murmur, no edema Gastrointestinal (Abdomen): normal bowel sounds, soft, nontender, no hepatosplenomegaly Skin: Left lower anterior leg wound measuring 11.3 x 3 x 2.4 cm. Surface area 33.9 cm. Covered in fibrin and slough. Periwound intact there is minimal drainage no foul odors. Psychiatric: A+Ox3, euthymic affect
[2018-04-29] MEDS: SODIUM CHLORIDE 0.9% 1000ML 1,000 ML IV SCH (15:28)
[2018-04-29] MEDS: cefTRIAXone SODIUM 2,000 MG in DEXTROSE 5% 50 ML IV SCH (15:29)
--- NOTE | 2018-04-29 21:31 | Progress Note ---
DATE: 04/29/2018 SUBJECTIVE: A 43-year-old gentleman postop day #1 from an I and D of the left leg abscess. He is doing quite a bit better. Some pain but much improved. He had a wound VAC placed today. No other complaints. OBJECTIVE: VITAL SIGNS: Temperature 36.5. Vital signs stable. GENERAL: Reveals a pleasant, middle-aged male. He is sitting up in bed, looks comfortable. He is talking on the phone when I came in to visit her. EXTREMITIES: Examination of the left lower extremity reveals some moderate swelling but improved. The cellulitis is markedly improved. He has got a wound VAC in place. He is neurologically intact. Compartments are soft. LABORATORY DATA: White cell count 11.11, hemoglobin 12.1, hematocrit 36.1. Electrolytes are stable. Gram stain was significant for gram positive cocci. Cultures are growing out Staph aureus. ASSESSMENT: A 43-year-old male with history of recurrent left leg infection postop day 1 from an incision and drainage of an abscess. He is markedly better. Pain is improved. Swelling is improving. Cellulitis is improved. Cultures are growing out Staphylococcus aureus. Sensitivities are pending. He has got a wound VAC in place. PLAN: At this point, we will continue wound VAC and will need wound care followup. We are waiting for definitive culture sensitivities. Personally, I think this gentleman can probably be treated with a wound VAC and oral antibiotics. We will leave that up to Dr. Gonzales and the infectious disease staff. He can weightbear as tolerated. We will continue DVT prophylaxis including TEDs, SCDs, and aspirin twice a day for now. Disposition will be pending the cultures and sensitivities and discharged on antibiotics. He will obviously need to follow up with the wound clinic for wound VAC changes.
[2018-04-30] MEDS: OXYCODONE HCL IR 5 MG TAB (IMMEDIATE RELEASE) PO PRN ×2 (01:21→18:44)
[2018-04-30] MEDS: VANCOMYCIN HCL 1,500 MG in SODIUM CHLORIDE 0.9% 500 ML IV SCH (01:37)
[2018-04-30 07:24] LABS: Creatinine Clr Calc Pharmacy 137.6 ml/min; Est GFR (African American) 122.2; Est GFR (Non-African American) 105.5
--- NOTE | 2018-04-30 07:47 | Progress Note ---
DATE: 04/30/2018 SUBJECTIVE: A 43-year-old ortiz postop day 2 from an I and D of the left leg abscess. He is doing well. Significantly improved. No new complaints. Really anxious to try and get home. OBJECTIVE: VITAL SIGNS: Temperature 36.5. Vital signs stable. GENERAL: Physical examination reveals a pleasant, middle-aged male. He is lying in bed, looks pretty comfortable. EXTREMITIES: Examination of the left leg reveals the wound VAC to be in place. Some moderate residual swelling. Cellulitis is improved. CULTURE RESULTS: Culture results revealed Staph aureus. Sensitivities are pending. ASSESSMENT: A 43-year-old gentleman postop day 2 from I and D of a left leg abscess. This is superficial abscess. There is no bone involved. He has got a wound VAC in place and made significant improvements. PLAN: 1. DVT prophylaxis including thigh-high TEDs, SCDs, and aspirin twice a day. 2. PT/OT. He can weightbear as tolerated. No real formal therapy needed. 3. Medical management. Continue IV antibiotics for now. We are waiting for sensitivities. If this is sensitive to oral antibiotics, I think it will be fine to send him out on oral antibiotics for this. He will need followup in wound clinic. 4. Disposition: We are waiting for the final culture results to determine disposition. He will need wound VAC therapy on the outside. Hopefully, we can convert him to p.o. antibiotics. We will see how the sensitivities show.
[2018-04-30] MEDS: SODIUM CHLORIDE 0.9% 1000ML 1,000 ML IV SCH ×2 (07:52→17:24)
[2018-04-30] MEDS: ASPIRIN 81 MG ECTAB PO SCH ×2 (09:59→20:39)
[2018-04-30] MEDS: PANTOprazole 40 MG TAB PO SCH (09:59)
[2018-04-30] MEDS: DOCUSATE SODIUM 100 MG CAP PO SCH ×2 (09:59→20:40)
[2018-04-30] MEDS: CEFAZOLIN 2000MG 2,000 MG/15 ML SYR IV SCH ×2 (12:11→20:39)
--- NOTE | 2018-04-30 14:31 | Infectious Disease Progress Nt ---
Date of Service April 30, 2018 Assessment & Plan (1) Abscess of left lower leg: Patient with abscess of left lower leg with methicillin sensitive staph aureus, now status post drainage with wound VAC placement. Patient has been changed to IV cefazolin, can likely transition to oral antibiotics tomorrow, suggest cefadroxil 1 g twice daily, likely in the range of 2 weeks. We will see at the wound care center in follow-up. (2) MSSA (methicillin susceptible Staphylococcus aureus) infection: Subjective Patient seen in follow-up for left leg abscess. Status post incision and drainage with finding of superficial purulent collection. Cultures growing methicillin sensitive staph aureus. Patient more comfortable, remains afebrile. No new complaints. Review of Systems All systems reviewed & are unremarkable except as noted in HPI & below Physical Exam 2 Vital Signs (Past 24 Hours): Last Vital Signs Temp 36.7 C 04/30/18 11:11 Pulse 66 04/30/18 11:11 Resp 16 04/30/18 11:11 BP 136/82 04/30/18 11:11 Pulse Ox 98 04/30/18 11:11 Constitutional: WD/WN, vitals as above + morbidly obese and comfortable; no acute distress Eyes: PERRL, conjunctivae normal, anicteric sclerae ENMT: external ear and nose normal, oropharynx normal Neck: trachea midline, no thyromegaly neck nontender Respiratory: normal respiratory effort, lungs clear to auscultation normal percussion; does not use accessory muscles Cardiovascular: Rate/Rhythm: regular rate and regular rhythm Heart Sounds: normal S1 and normal S2; no gallop, no murmur and no cardiac rub Vessels: normal peripheral pulses; no JVD Gastrointestinal (Abdomen): normal bowel sounds, soft, nontender, no hepatosplenomegaly Musculoskeletal: no cyanosis or clubbing, extremities motor strength 5/5 Spine: thoracic spine normal to inspection and lumbar spine normal to inspection ; no cervical spinal tenderness Skin: normal turgor; no rashes Wound VAC in place left leg Neurologic: patellar DTR's 2+ bilat, sensation intact no focal motor deficits Psychiatric: A+Ox3, euthymic affect Orientation: cooperative Lymphatic: no cervical or axillary lymphadenopathy no inguinal lymphadenopathy Results & Data Laboratory Results BMP 04/30/18 06:15 Creatinine 0.86 Diagnostic Findings Microbiology 04/28/18 13:56 Leg,Left Gram Stain - Final 04/28/18 13:56 Leg,Left Deep Wound Culture - Final Staphylococcus aureus 04/28/18 13:56 Leg,Left Gram Stain - Final 04/28/18 13:56 Leg,Left Aerobic and Anaerobic Culture - Preliminary Staphylococcus aureus
[2018-04-30] MEDS: ACETAMINOPHEN 500 MG TAB PO PRN (20:42)
[2018-05-01] MEDS: CEFAZOLIN 2000MG 2,000 MG/15 ML SYR IV SCH ×2 (04:44→14:18)
[2018-05-01] MEDS: OXYCODONE HCL IR 5 MG TAB (IMMEDIATE RELEASE) PO PRN ×2 (04:44→09:31)
[2018-05-01 08:13] LABS: Creatinine Clr Calc Pharmacy 132.9 ml/min; Est GFR (African American) 120.5
[2018-05-01] MEDS: PANTOprazole 40 MG TAB PO SCH (09:32)
[2018-05-01] MEDS: DOCUSATE SODIUM 100 MG CAP PO SCH (09:32)
[2018-05-01] MEDS: ASPIRIN 81 MG ECTAB PO SCH (09:32)
--- NOTE | 2018-05-01 13:25 | Progress Note ---
DATE: 05/01/2018 SUBJECTIVE: A 43-year-old gentleman now postop day 3 from an I and D of a left leg abscess. He is doing well. No complaints. He says he feels like he is ready to go home. OBJECTIVE: VITAL SIGNS: Temperature 36.5. Vital signs stable. GENERAL: Physical examination reveals a healthy, pleasant, middle-aged male. He is sitting up in his bedside chair with his leg elevated and looks comfortable. EXTREMITIES: Examination of the left leg reveals some moderate swelling. Cellulitis is markedly improved. He can dorsiflex and plantarflex his foot appropriately. Compartments are soft. The wound VAC is in place. LABORATORY DATA: Culture results are growing Staph aureus. It is methicillin sensitive. ASSESSMENT: A 43-year-old gentleman postop day 3 from I and D of a left leg abscess. He has got a wound VAC in place. It is growing out methicillin-sensitive staph. PLAN: At this point, we are going to have his wound VAC likely changed today as per protocol. We are going to switch him to p.o. antibiotics with ID's recommendations and this will be anywhere from 2-4 week course. He should be able to be discharged later today. I will see him back in 2 weeks. Continue DVT prophylaxis including TEDs, SCDs, and aspirin twice a day for the next month.
[2018-05-01] MEDS ORDERED: VANCOMYCIN TROUGH ONE (13:30)
--- NOTE | 2018-05-08 10:38 | Discharge Summary ---
ADMITTING PHYSICIAN AND SURGEON: Avinash Rodriguez MD ADMITTING DIAGNOSIS: Left leg abscess and surrounding cellulitis. PROCEDURE PERFORMED: Irrigation and debridement of left leg abscess. DATE OF PROCEDURE: 04/28/2018. CONSULTS: Dr. Gonzales from infectious disease service and Dr. Adebayo Moralez with wound care. HISTORY AND PHYSICAL EXAM: Well documented in the patient's chart. HOSPITAL COURSE: The patient was admitted on 04/27/2018 with an abscess and surrounding cellulitis of his left lower leg. He was started on IV antibiotics. Infectious diseases service was consulted as well. On 04/28/2018, he underwent I and D of the left leg abscess, tolerated the procedure well. There were no complications. The wound was packed at that time. He was transferred to the PACU postoperatively and later to the orthopedic floor for further care. He was seen by wound care the following day and had a wound VAC placed. He was given vancomycin IV, which was eventually changed to Ancef. His cultures grew out methicillin-sensitive staph. His vital signs were monitored throughout his hospital stay and remained stable. He did not require any blood transfusions. There were no complications. By postoperative day 3, he was tolerating a regular diet, pain was controlled with oral pain medicine. He was participating in physical therapy. On postop day 3, he was discharged home, set up with home health services. He was given printed discharge instructions. He can be weightbearing as tolerated. He should continue use of the wound VAC as per the wound center recommendations. He was given new prescriptions for extra-strength Tylenol, aspirin, cefadroxil and oxycodone. His IV antibiotics were discontinued prior to his discharge and he was started on oral antibiotics. He was instructed to stop the oral Keflex and Bactrim that he was on prior. He will follow up with Dr. Rodriguez in approximately 2 weeks or sooner if there are any problems or concerns.
== END 2018-05-01 14:25 | disposition home health service (06) | DRG 580 ==
LOC: 3N 13:03

== ENCOUNTER 2018-09-13 12:01 | Inpatient (IN) ==
--- NOTE | 2018-09-13 12:47 | XRay Report ---
XR chest 1V portable CLINICAL HISTORY: Atypical chest pain COMPARISON STUDY: No previous studies for comparison. FINDINGS: The heart is at the upper limits of normal in size. Slight interstitial prominence is likel y related to technical factors given the patient's body habitus and AP portable technique. There is n o overt failure. There is no focal pulmonary consolidation. There are no pleural effusions. There is borderline elevation of right hemidiaphragm.[ IMPRESSION: No active disease in the chest. Electronically signed by: Nico Mckeon M.D. 09/13/2018 12:46 PM
[2018-09-13 13:08] LABS: Basophils # (auto) 0.04 K/uL (0-0.2); Basophils % (auto) 0.5 %; Eosinophils # (auto) 0.17 K/uL (0-0.5); Hematocrit (blood only) 44.2 % (42-52); Immature Granulocytes # (auto) 0.02 K/uL (0.00-0.02); Immature Granulocytes % (auto) 0.2 %; Lymphocytes # (auto) 1.64 K/uL (1.2-3.4); Lymphocytes % (auto) 19.6 %; Mean Corpuscular Hgb Conc 33.9 g/dL (32-36); Mean Corpuscular Volume 83.9 fL (80-100); Mean Platelet Volume 9.5 fL (7.4-10.4); Monocytes # (auto) 0.55 K/uL (0.11-0.59); Monocytes % (auto) 6.6 %; Neutrophils # (auto) 5.95 K/uL (1.4-6.5); Neutrophils % (auto) 71.1 %; Platelet Count 235 K/uL (130-400); RDW Coefficient of Variation 14.9 % (11.5-14.5); RDW Standard Deviation 45.7 fL (36.4-46.3); Red Blood Count 5.27 M/uL (4.7-6.1); White Blood Count 8.37 K/uL (4.8-10.8)
[2018-09-13 13:18] LABS: INR 1.1 (0.9-1.1); Partial Thromboplastin Time 25.9 Seconds (21.0-31.0); Prothrombin Time 10.9 Seconds (9.0-12.0)
[2018-09-13 13:27] LABS: Albumin Level 4.1 gm/dl (3.4-5.0); BUN Creatinine Ratio 10.7 (10-20); Bilirubin Direct 0.2 mg/dl (0-0.2); Creatinine Clr Calc Pharmacy 100.3 ml/min; Est GFR (African American) 85.6; Est GFR (Non-African American) 73.8; Magnesium 2.2 mg/dl (1.8-2.4); Potassium 3.7 mmol/L (3.5-5.1)
[2018-09-13 13:35] LABS: Albumin Globulin Ratio 1.1 (0.9-2); Bilirubin,Total 0.9 mg/dl (0.2-1); Globulin 3.9 gm/dl (2.5-4.0); Troponin I 0.213 ng/ml (0-0.045)
[2018-09-13] MEDS ORDERED: OPTIRAY 320 125ml IV PRN (14:00)
--- NOTE | 2018-09-13 14:13 | CT Scan Report ---
CT ANGIOGRAM OF THE CHEST CLINICAL HISTORY: Shortness of breath. Left leg pain and swelling. Atypical chest pain. Possible pulm onary embolism. COMPARISON STUDY: January 2017 TECHNIQUE: Following the IV administration of 120 mL of Optiray-320, CT angiogram of the thorax was p erformed from the thoracic inlet to the lung bases utilizing the pulmonary embolus protocol. Images a re reviewed in the axial, sagittal, and coronal planes. IV contrast was administered without complica tion. MIP imaging was performed. A dose lowering technique was utilized adhering to the principles o f ALARA. CT DOSE: 1043.90 mGy.cm FINDINGS: No pathologically enlarged axillary mediastinal or hilar lymph nodes were visualized. There was no evidence of thoracic aortic dilatation. There multiple bilateral pulmonary artery filling defects. There is equivocal mild right ventricular strain. No pleural effusions are visualized. There was no evidence of focal pulmonary consolidation. IMPRESSION: 1. Extensive acute bilateral pulmonary embolism with possible associated right ventricular strain Electronically signed by: Nico Mckeon M.D. 09/13/2018 2:11 PM
[2018-09-13] MEDS ORDERED: ENOXAPARIN 1 MG/KG SQ STA (14:52)
[2018-09-13] MEDS ORDERED: ENOXAPARIN 150 MG/ML SYR SQ SCH (15:15)
--- NOTE | 2018-09-13 15:53 | History & Physical Report ---
Date of Service September 13, 2018 Assessment & Plan (1) Bilateral pulmonary embolism: Hypercoagulable profile drawn. Lovenox 1 mg/kg subcutaneously every 12 hours. Possible associated right ventricular strain. Complete cardiac echo pending. Aggressive IV fluid administration at this time. Present on Admission?: Yes (2) Angina pectoris: Exertional chest pain and shortness of breath relieved with rest. El evated troponin and abnormal EKG. Start aspirin and beta-consuelo therapy. Consult cardiology. Lovenox therapy. Cardiac echo. Present on Admission?: Yes (3) Elevated troponin: As above. Telemetry. Serial troponins ordered Present on Admission?: Yes (4) Right calf pain: Possible right lower extremity DVT which would be the source for the bilateral PE.. Venous Doppler ordered Present on Admission?: Yes History of Present Illness Venous Doppler of legs also ordered venous Doppler of legs also ordered Chief Complaint: Chest discomfort, shortness of breath, right calf pain Primary Care Provider: Nico Vera 43-year-old obese male who has had exertional shortness of breath for 2 weeks with left upper chest discomfort of an exertional nature which resolves with rest. He also has had some right calf pain and swelling. Interestingly, he has a previous history of pulmonary embolism after right wrist surgery back in 2017. He may have 2 separate problems at this time considering his EKG appears to be abnormal and his troponin is significantly elevated. Chest CT scan does reveal evidence of bilateral pulmonary embolism and right ventricular strain. His oxygen saturation is 93% on room air and he is hemodynamically stable at this time. However, topical nitrates will be avoided due to the potential for hypotension associated with a bilateral PE and possible right ventricular strain. He will be given aggressive IV fluids at this time and started on Lovenox 1 mg/kg subcutaneously every 12 hours. Hypercoagulable profile has been drawn in the ED prior to initiation of anticoagulation. He will be started on aspirin therapy and beta-consuelo therapy. Complete cardiac echo will be requested along with cardiology consultation. Serial troponins ordered. Allergies Allergy/AdvReac Type Severity Reaction Status Date / Time No Known Allergies Allergy Verified 09/13/18 12:59 Home Medications Home Medications Medication Instructions Recorded Confirmed Type No Known Home Medications 06/12/18 09/13/18 History Past Med/Surg History Medical History Cellulitis of left anterior lower leg (Inactive) History of pulmonary embolism 2017= XARELTO X 4 MONTHS; NO ISSUES SINCE Leg wound, left REASON FOR PROCEDURE; LLE CELLULITIS S/P ANTIBIOTICS Morbid obesity Snoring NO SLEEP STUDY Surgical History History of incision and drainage LLE. 01/20/2018. Done by Dr. Langley at [facility]. LMA #5. no issues. History of open reduction and internal fixation (ORIF) procedure RIGHT WRIST X 2; RIGHT WRIST ORIF= 11/04/16= LMA#5 AT [facility] Family History Grandfather Family history of diabetes mellitus Father Family history of diabetes mellitus Social History Preferred Language: Lao Communication Ability: Effective Visual Impairment: No Limitations Beliefs That Will Affect Care: None Current Living Situation: Family Feels Safe at Home: Yes Smoking Status: Never smoker Second Hand Exposure: No Hx Alcohol Use: Yes Alcohol type: beer Hx Substance Use: No Review of Systems Review of Systems: Constitutional-no fever or chills ENT-no blurred vision, no double vision, no epistaxis, no sore throat Respiratory-no cough, no wheezing. Exertional dyspnea Cardiac-no palpitations, no syncope. Pressure-like left upper chest pain with exertion GI-no nausea, vomiting, diarrhea, melena, hematochezia -no urinary retention, no urinary incontinence, no dysuria, no hematuria Musculoskeletal-no joint pain. Right calf tenderness and swelling Skin-no bruising, no rashes, no pruritus Neuro-no isolated weakness, no paresthesia, no weakness Psych-no depression, no anxiety Physical Exam Physical Exam: General-alert and oriented x3, no fevers, no chills HEENT-head atraumatic and normocephalic, TMs intact bilaterally, pupils equal and reactive to light, extraocular muscles intact Neck-no lymphadenopathy or thyromegaly, trachea midline Chest-clear to auscultation percussion. No rales wheezing or rhonchi Cardiac-regular rate and rhythm, normal S1 and S2, no murmurs Abdomen-normal bowel sounds, nontender, no hepatosplenomegaly Extremities-no cyanosis, clubbing. Right calf tenderness with equivocal Homans sign. Right calf area seems to be somewhat more swollen than the left Neuro-cranial nerves II through XII intact, motor and sensory function within normal limits, strength symmetrical 5/5, no focal deficits Psych-normal affect, normal mood Results & Data Vital Signs (Past 12 Hours) Vital Signs Temp Pulse Resp BP Pulse Ox 09/13/18 15:00 91 H 28 H 96 09/13/18 14:30 92 H 27 H 136/89 92 09/13/18 14:02 105 H 18 93 09/13/18 14:01 97 H 23 146/90 H 93 09/13/18 14:00 100 H 12 09/13/18 13:40 91 H 23 128/81 90 09/13/18 13:30 93 H 28 H 90 09/13/18 13:00 101 H 25 H 94 09/13/18 12:59 100 H 18 92 09/13/18 12:57 95 H 20 122/84 92 09/13/18 12:04 36.6 C 104 H 22 138/92 98 Laboratory Results 09/13/18 12:54 09/13/18 12:54 PG Care Time/CCT Total # of Minutes Spent Total Time Spent with Patient: Total time spent is greater than 50% in coordination of care (as documented) at patient's floor/unit and/or counseling p atient:
--- NOTE | 2018-09-13 16:06 | Emergency Department Note ---
Entered by Elisabeth Rizzo acting as a scribe for History of Present Illness General Chief complaint: Chest Pain Stated complaint: SOB, CHEST DISCOMFORT Time Seen by Provider: 09/13/18 12:20 Source: patient History of Present Illness Onset (ago): week(s) 1 Location: chest Pain Consistency: + other (persistent) Maximum Pain Intensity: 5 Quality: + other (shortness of breath) Relieved By: + rest Exacerbated By: + movement (exertion) Associated symptoms: + denies other symptoms (nausea, fever) and + other (calf pain, pain in left shoulder) The patient is a 43 year old male that is presenting to the Emergency Room with complaints of persistent shortness of breath with exertion that started one week ago. The patient reports that he is unable to catch his breath when walking or going up stairs. He states that his symptoms are relieved when he rests or lies down. He notes that he has an associated pain in his calf and in his left sh oulder that started yesterday. He states that the pain in his shoulder is a dull pulling sensation that worsens with deep breaths. He reports that he has some discomfort when he lies flat in some positions. He denies any nausea or fever. The patient states that he travelled to the [facility] yesterday and completed the [address] without stopping. He denies any other recent long periods of travel. The patient notes that he had surgery on his left leg for a staph infection recently and states that he has had swelling in his bilateral legs since that time. He denies taking any diuretics. He reports that he has a history of pulmonary embolisms. He denies any history of significant cardiac issues, asthma, allergies, diabetes, hypertension, or hyperlipidemia. He notes that he is a never smoker. He states that he is not taking any blood thinners. He reports that he was on blood thinners for 4 months after a wrist surgery 1.5 years ago. Home Medications Home Medications Medication Instructions Recorded Confirmed Type No Known Home Medications 06/12/18 09/13/18 History Allergies Allergy/AdvReac Type Severity Reaction Status Date / Time No Known Allergies Allergy Verified 09/13/18 12:59 Past Med/Surg History Medical History Cellulitis of left anterior lower leg (Inactive) History of pulmonary embolism 2017= XARELTO X 4 MONTHS; NO ISSUES SINCE Leg wound, left REASON FOR PROCEDURE; LLE CELLULITIS S/P ANTIBIOTICS Morbid obesity Snoring NO SLEEP STUDY Surgical History History of incision and drainage LLE. 01/20/2018. Done by Dr. Langley at [facility]. LMA #5. no issues. History of open reduction and internal fixation (ORIF) procedure RIGHT WRIST X 2; RIGHT WRIST ORIF= 11/04/16= LMA#5 AT [facility] Family History Grandfather Family history of diabetes mellitus Father Family history of diabetes mellitus Social History Preferred Language: Slovenian Communication Ability: Effective Visual Impairment: No Limitations Beliefs That Will Affect Care: None Current Living Situation: Family Feels Safe at Home: Yes Smoking Status: Never smoker Second Hand Exposure: No Hx Alcohol Use: Yes Alcohol type: beer Hx Substance Use: No Review of Systems See HPI for pertinent positives & negatives. and A total of 10 systems reviewed and were otherwise negative Physical Exam Vital Signs Vital Signs - 24 hr 09/13/18 12:04 09/13/18 12:57 09/13/18 12:59 Temperature 36.6 C Temperature Source Oral Sepsis Recent Fever Within 48 Hours No Sepsis Action Taken by Nursing No Action Required Pulse Rate 104 H 95 H 100 H Pulse Rate from SpO2 Sensor 95 H 95 H Pulse Rhythm Regular Respiratory Rate 22 20 18 Respiratory Effort / Characteristics Non-Labored Respiratory Depth Normal Blood Pressure 138/92 122/84 Blood Pressure Mean 107 96 Pulse Oximetry 98 92 92 Oxygen Delivery Method Room Air Room Air 09/13/18 13:00 09/13/18 13:30 09/13/18 13:40 Temperature Temperature Source Sepsis Recent Fever Within 48 Hours Sepsis Action Taken by Nursing Pulse Rate 101 H 93 H 91 H Pulse Rate from SpO2 Sensor 101 H 93 H 93 H Pulse Rhythm Respiratory Rate 25 H 28 H 23 Respiratory Effort / Characteristics Respiratory Depth Blood Pressure 128/81 Blood Pressure Mean 96 Pulse Oximetry 94 90 90 Oxygen Delivery Method 09/13/18 14:00 09/13/18 14:01 09/13/18 14:02 Temperature Temperature Source Sepsis Recent Fever Within 48 Hours Sepsis Action Taken by Nursing Pulse Rate 100 H 97 H 105 H Pulse Rate from SpO2 Sensor 96 H 103 H Pulse Rhythm Respiratory Rate 12 23 18 Respiratory Effort / Characteristics Respiratory Depth Blood Pressure 146/90 H Blood Pressure Mean 108 Pulse Oximetry 93 93 Oxygen Delivery Method 09/13/18 14:30 09/13/18 15:00 Temperature Temperature Source Sepsis Recent Fever Within 48 Hours Sepsis Action Taken by Nursing Pulse Rate 92 H 91 H Pulse Rate from SpO2 Sensor 92 H 91 H Pulse Rhythm Respiratory Rate 27 H 28 H Respiratory Effort / Characteristics Respiratory Depth Blood Pressure 136/89 Blood Pressure Mean 104 Pulse Oximetry 92 96 Oxygen Delivery Method GENERAL: Awake, alert, fatigued-appearing, in no distress. BMI 45.5. HENT: Normocephalic, atraumatic. Oropharynx with dry mucous membranes and otherwise unremarkable. EYES: Normal conjunctiva. Sclera non-icteric. NECK: Supple. No nuchal rigidity. FROM. No JVD. RESPIRATORY: Clear to auscultation bilaterally. CARDIAC: Tachycardic rate, normal rhythm. Extremities warm and well perfused. Pulses equal. ABDOMEN: Soft, non-distended. No tenderness to palpation. No rebound or guarding. No masses. RECTAL: Deferred. MUSCULOSKELETAL: Chest examination reveals no tenderness. The back is symmetrical on inspection without obvious abnormality. There is no CVA tenderness to palpation. No joint edema. LOWER EXTREMITIES: Calves are equal size bilaterally and non-tender. No discoloration. 1+ bilateral lower extremity edema. NEURO: Normal sensorium. No sensory or motor deficits noted. SKIN: No rash or jaundice noted. Course 1229:The patient was evaluated in room C11B. A complete history and physical examination was performed. 1450: I discussed the patient's case with PARAS Hazel, who will evaluate the patient for further management and care. 1500: Upon reevaluation, the patient is resting comfortably. I discussed laboratory and radiographic results with the patient. He verbalized agreement of the treatment plan. The patient will be evaluated for further management and care. Consultations Consultation #1: I discussed the patient's case with PARAS Hazel, who will evaluate the patient for further management and care. Time: 14:50 Administered Medications Ioversol (Optiray 320 125ml) 120 ml IV ONCE PRN PRN Reason: Interaction Checking Stop: 09/17/18 13:59 Last Admin: 09/13/18 14:01 Dose: 1 ml Documented by: [id number] Discontinued Medications Enoxaparin Sodium (Lovenox 1 Mg/Kg Providers Use Dosing Set) 1 mg SQ NOW STA Stop: 09/13/18 14:53 Last Admin: 09/13/18 15:28 Dose: Not Given Documented by: [id number] Enoxaparin Sodium (Lovenox) 129 mg SQ TODAY@1515 [facility] Stop: 09/13/18 15:16 Last Admin: 09/13/18 15:27 Dose: 129 mg Documented by: [id number] Medical Decision Making Differential Diagnosis Differential diagnosis: Etiologies such as infections, reactive airway disease, COPD, pneumonia, pleural effusion, pulmonary edema, ARDS, pneumothorax, CHF, cardiac ischemia, cardiac tamponade, dysrhythmia, anemia, pulmonary embolism, musculoskeletal, gastrointestinal process, as well as others were entertained. Medical Records Attestation: I reviewed the patient's medical records. Home Medications Current Medication List: was personally reviewed by me Laboratory Data Attestation: I reviewed the patient's lab results. Result diagrams: 09/13/18 12:54 09/13/18 12:54 Lab Results 09/13/18 09/13/18 09/13/18 Range/Units 12:54 12:54 12:54 WBC 8.37 (4.8-10.8) K/uL RBC 5.27 (4.7-6.1) M/uL Hgb 15.0 (14.0-18.0) g/dL Hct 44.2 (42-52) % MCV 83.9 (80-100) fL MCH 28.5 (25-34) pg MCHC 33.9 (32-36) g/dL RDW Std Deviation 45.7 (36.4-46.3) fL RDW Coeff of Asif 14.9 H (11.5-14.5) % Plt Count 235 (130-400) K/uL MPV 9.5 (7.4-10.4) fL Immature Gran % (Auto) 0.2 % Neut % (Auto) 71.1 % Lymph % (Auto) 19.6 % [place] % (Auto) 6.6 % Eos % (Auto) 2.0 % Baso % (Auto) 0.5 % Immature Gran # (Auto) 0.02 (0.00-0.02) K/uL Neut # (Auto) 5.95 (1.4-6.5) K/uL Lymph # (Auto) 1.64 (1.2-3.4) K/uL [place] # (Auto) 0.55 (0.11-0.59) K/uL Eos # (Auto) 0.17 (0-0.5) K/uL Baso # (Auto) 0.04 (0-0.2) K/uL PT 10.9 (9.0-12.0) Seconds INR 1.1 (0.9-1.1) APTT 25.9 (21.0-31.0) Seconds PTT Ratio 1.0 Sodium 136 (136-145) mmol/L Potassium 3.7 (3.5-5.1) mmol/L Chloride 104 (98-107) mmol/L Carbon Dioxide 26 (21-32) mmol/L Anion Gap 6.0 (3-11) BUN 13 (7-18) mg/dl Creatinine 1.19 (0.6-1.4) mg/dl Est Cr Clr Drug Dosing 100.3 ml/min Est GFR ( Amer) 85.6 Est GFR (Non-Af Amer) 73.8 BUN/Creatinine Ratio 10.7 (10-20) Glucose 86 (70-99) mg/dl Calcium 9.0 (8.5-10.1) mg/dl Phosphorus 2.0 L (2.5-4.9) mg/dl Magnesium 2.2 (1.8-2.4) mg/dl Total Bilirubin 0.9 (0.2-1) mg/dl Direct Bilirubin 0.2 (0-0.2) mg/dl AST 20 (15-37) U/L ALT 29 (12-78) U/L Alkaline Phosphatase 137 H (45-117) U/L Troponin I 0.213 H* (0-0.045) ng/ml NT-Pro-B Natriuret Pep 1737 H (0-450) pg/ml Total Protein 8.0 (6.4-8.2) gm/dl Albumin 4.1 (3.4-5.0) gm/dl Globulin 3.9 (2.5-4.0) gm/dl Albumin/Globulin Ratio 1.1 (0.9-2) Lipase 106 (73-393) U/L Imaging Data Radiologist's Impression: Radiology results as stated below per my review and the radiologist's interpretation: XR chest 1V portable CLINICAL HISTORY: Atypical chest pain COMPARISON STUDY: No previous studies for comparison. FINDINGS: The heart is at the upper limits of normal in size. Slight interstitial prominence is likely related to technical factors given the patient's body habitus and AP portable technique. There is no overt failure. There is no focal pulmonary consolidation. There are no pleural effusions. There is borderline elevation of right hemidiaphragm.[ IMPRESSION: No active disease in the chest. Electronically signed by: Nico Mckeon M.D. 09/13/2018 12:[address] ANGIOGRAM OF THE CHEST CLINICAL HISTORY: Shortness of breath. Left leg pain and swelling. Atypical chest pain. Possible pulmonary embolism. COMPARISON STUDY: January 2017 TECHNIQUE: Following the IV administration of 120 mL of Optiray-320, CT angiogram of the thorax was performed from the thoracic inlet to the lung bases utilizing the pulmonary embolus protocol. Images are reviewed in the axial, sagittal, and coronal planes. IV contrast was administered without complication. MIP imaging was performed. A dose lowering technique was utilized adhering to the principles of ALARA. CT DOSE: 1043.90 mGy.cm FINDINGS: No pathologically enlarged axillary mediastinal or hilar lymph nodes were visualized. There was no evidence of thoracic aortic dilatation. There multiple bilateral pulmonary artery filling defects. There is equivocal mild right ventricular strain. No pleural effusions are visualized. There was no evidence of focal pulmonary consolidation. IMPRESSION: 1. Extensive acute bilateral pulmonary embolism with possible associated right ventricular strain Electronically signed by: Nico Mckeon M.D. 09/13/2018 2:11 PM ECG Data Attestation: I personally reviewed and interpreted this ECG as follows: Indication: chest pain Rate (beats per minute): 100 Rhythm: sinus rhythm Findings: + nonspecific-ST abn (anterior and lateral); no ST elevation Comparison ECG Date: from (04/27/18) Change: the following changes noted (ST and T wave abnormalities are new) Blood Pressure Blood Pressure Findings: Elevated blood pressure Blood Pressure Disposition: elevated BP felt to be situational MDM Narrative The patient is a pleasant 43-year-old gentleman with a past medical history of provoked pulmonary embolism in 2017 in the setting of wrist surgery previously on Xarelto, left lower extremity abscess with associated cellulitis in April 2018 status post surgical irrigation and debridement who presents emergency department for worsening dyspnea on exertion over the past week per hpi. Patient is unsure of any possible provoking factors around that time. He does say that he did drive to [place] this weekend with his family and they did not stop for the 3-hour car ride however his symptoms did start even before then. On arrival patient is fatigued appearing but no acute distress, afebrile with heart rate in the 100s but vital signs otherwise stable. His oxygen saturation is within normal limits on room air. EKG is sinus with ST and T wave abnormalities that are new from previous. No overt ST elevations. Chest x-ray without acute process. WBC, H/H, platelets wnl. Chemistry without acidosis. LFTs unremarkable. Troponin elevated at 0.213 and BNP 1700 without recent values for comparison. CTA of the chest demonstrates extensive acute bilateral pulmonary embolism with possible associated right ventricular strain. Limited bedside echo does demonstrate enlarged RV with mild bowing of the septum. Patient certainly could have undiagnosed history of CONCETTA however given the patient's troponin elevation RV dilation most likely is acute secondary to the patient's extensive pulmonary embolisms. Despite these findings patient continue to be relatively well-appearing and hemodynamically stable with heart rate in the 90s and normotensive. Lungs were reviewed with the patient and he denies any recent symptoms of bleeding. Agreeable with plan for treatment and admission. Case was discussed with Dr. Howell, [facility] hospitalist, who will evaluate the patient for admission. Requests hypercoagulability panel and we agreed to initiate treatment with Lovenox. Impression & Plan Bilateral pulmonary embolism, Elevated troponin Critical Care Time Critical Care Time: Yes Total Critical Care Time: 65 I have personally spent greater than 65 minutes of critical care time in the direct management of this patient. This includes bedside care, interpretation of diagnostic studies, and testing, discussion with consultants, patient, and family members, and other required patient management activities. This 65 minutes is in excess of all separately billable procedures. Discharge Plan Visit Data Chief Complaint: Chest Pain Stated Complaint: SOB, CHEST DISCOMFORT ED Provider: Kaden Chawla Discharge Problem: Bilateral pulmonary embolism, Elevated troponin Patient Disposition: Being Evaluated by Hospitalist Forms Stand Alone Forms: Call Back Authorization, My [facility] Prescriptions Prescriptions: No Action No Known Home Medications RF: 0 Referrals Referrals: Nico Vera [Primary Care Provider] - The scribe's documentation has been prepared under my direction and personally reviewed by me in its entirety. I confirm that the note above accurately reflects all work, treatment, procedures, and medical decision making performed by me.
[2018-09-13] MEDS ORDERED: ENOXAPARIN 1 MG/KG SQ SCH (17:25)
[2018-09-13] MEDS ORDERED: ACETAMINOPHEN 325 MG TAB PO PRN (17:25)
[2018-09-13] MEDS ORDERED: NITROGLYCERIN SL 0.4 MG/TAB TAB SL PRN (17:25)
[2018-09-13] MEDS ORDERED: ONDANSETRON INJ 2 MG/ML 2 ML VIAL IV PRN (17:25)
[2018-09-13] MEDS ORDERED: ALUMINUM/MAGNESIUM SUSP 30 ML UDC PO PRN (17:25)
[2018-09-13] MEDS: ASPIRIN 81 MG ECTAB PO SCH (18:17)
[2018-09-13] MEDS: SODIUM CHLORIDE 0.9% 1000ML 1,000 ML IV SCH (18:17)
--- NOTE | 2018-09-13 20:38 | Ultrasound Report ---
US venous doppler LE BI CLINICAL HISTORY: Pulmonary embolism, right calf pain COMPARISON STUDY: November 2017 FINDINGS: The right common femoral vein and proximal superficial femoral vein are patent. There is ex tensive thrombus within the distal right superficial femoral vein, popliteal vein, posterior tibial v ein, and peroneal vein. There is no evidence of left lower extremity DVT. IMPRESSION: 1. Acute right lower extremity DVT with involvement of the distal right superficial femoral vein, pop liteal vein, posterior tibial vein, peroneal vein. 2. No evidence of left lower extremity DVT. Electronically signed by: Nico Mckeon M.D. 09/13/2018 8:36 PM
[2018-09-13] MEDS: METOPROLOL TARTRATE 25 MG TAB PO SCH (20:47)
[2018-09-14] MEDS: SODIUM CHLORIDE 0.9% 1000ML 1,000 ML IV SCH ×2 (01:46→08:18)
[2018-09-14] MEDS ORDERED: ENOXAPARIN 150 MG/ML SYR SQ SCH (05:00)
[2018-09-14] MEDS ORDERED: PERFLUTREN LIPID MICROSPHERE (DEFINITY) IV ONE (06:47)
[2018-09-14] MEDS: METOPROLOL TARTRATE 25 MG TAB PO SCH (08:19)
[2018-09-14] MEDS: ASPIRIN 81 MG ECTAB PO SCH (08:19)
--- NOTE | 2018-09-14 09:56 | Cardiology Consultation ---
Date of Consultation September 14, 2018 Assessment & Plan (1) Bilateral pulmonary embolism: 2. RV strain 3. RLE DVT 4. Abnormal EKG 5. Obesity/CONCETTA Patient with extensive bilateral PE and resulting pulmonary hypertension, RV strain with RV dysfunction/dilation (RV to LV ratio > 1.1). EKG, enzyme findings, BNP all consistent with RV strain and PE. Do not feel additional active cardiac process at this time. Despite extensive clot burden and RV strain clinically doing well and seems low risk going forward. No role for invasive therapy. With significant PE, recurrent event, unprovoked and male gender feel high risk for future recurrence and would favor long-term anticoagulation no matter findings of hypercoaguable work-up. -- Transition to NOAC per primary team -- Can stop aspirin. -- Beta-consuelo can be discontinued if started for ACS History of Present Illness Attending Physician: Margot More MD History of Present Illness Mr. Proctor is a very pleasant 43-year-old man with a history of morbid obesity, obstructive sleep apnea, recent left lower extremity cellulitis/abscess with prolonged wound healing and prior history of PE in the setting of wrist surgery and 2017 readmitted with exertional dyspnea for the last 2 weeks. Symptoms have been gradually progressive over that time and on the day prior to admission unable to keep up with his family on trip to [facility] [place]. Shortness of breath associated with near constant left-sided chest pain. Denies palpitations, presyncope. Has had new right lower extremity pain/swelling. No recent extended travel, no recent surgery. Prior left lower extremity surgical wound has healed and discharge from wound clinic in July. On admission he dynamically stable, sinus tachycardia to the 100s, O2 sats in low 90s on room air. EKG showed sinus tachycardia, S1Q3T3 pattern with incomplete right bundle branch block and anterolateral T wave inversions. Initial troponin positive at 0.2 down to 0.15 down to 0.1. Mildly elevated BNP at 1700. CTA showed extensive acute bilateral PE right greater than left with dilated RV (RV to LV ratio greater than 1.1). Lower extremity venous duplex showed acute right lower extremity DVT from distal femoral vein into peroneal vein. Treated with IV fluids, subcu Lovenox and started on aspirin, metoprolol as morning. Today feeling well. Still short of breath with walking around his room and tachycardic up into the 130s 140s. At rest rates in the 90s. Allergies Allergy/AdvReac Type Severity Reaction Status Date / Time No Known Allergies Allergy Verified 09/13/18 12:59 Home Medications Home Medications Medication Instructions Recorded Confirmed Type No Known Home Medications 06/12/18 09/13/18 History Patient History Medical History Cellulitis of left anterior lower leg (Inactive) History of pulmonary embolism 2017= XARELTO X 4 MONTHS; NO ISSUES SINCE Leg wound, left REASON FOR PROCEDURE; LLE CELLULITIS S/P ANTIBIOTICS Morbid obesity Snoring NO SLEEP STUDY Surgical History History of incision and drainage LLE. 01/20/2018. Done by Dr. Langley at [facility]. LMA #5. no issues. History of open reduction and internal fixation (ORIF) procedure RIGHT WRIST X 2; RIGHT WRIST ORIF= 11/04/16= LMA#5 AT [facility] Family History Grandfather Family history of diabetes mellitus Father Family history of diabetes mellitus Social History Preferred Language: Palestinian Communication Ability: Effective Visual Impairment: No Limitations Menagerie Superintendent Required: No Beliefs That Will Affect Care: None Current Living Situation: Spouse Other Information That Helps Us Care for You: No Feels Safe at Home: Yes Safety Concerns: Feels Safe At This Time Smoking Status: Never smoker Second Hand Exposure: No Hx Alcohol Use: Yes Alcohol type: beer Hx Substance Use: Yes substance use type: does not use Review of Systems Review of Systems: All systems reviewed & are unremarkable except as noted in HPI & below Physical Exam Physical Exam: General: Comfortable, no acute distress Eyes: Sclerae anicteric, extraocular movements intact HENT: Oropharynx clear mucous membranes moist Neck: Normal carotid upstrokes, no bruits. No JVD. Lungs: Clear to auscultation bilaterally, no rhonchi or wheezes Cardiac: Regular rate and rhythm, no murmurs, rubs or gallops. Vascular: 2+ radial, DP and PT pulses. Abdomen: Soft, nontender, nondistended, positive bowel sounds. Extremities: Right lower extremity mildly swollen, warm tender behind the knee. Left lower extremity Skin: No rashes or lesions. Neuro: Nonfocal Psych: Alert orient x3, normal affect and mood Results & Data Vital Signs (Past 12 Hours) Vital Signs Temp Pulse Pulse Resp BP Pulse Ox 09/14/18 06:57 36.3 C L 87 16 109/75 91 09/14/18 04:07 36.8 C 92 H 16 121/80 91 09/13/18 23:59 36.9 C 91 H 89 16 118/75 93
[2018-09-14 15:33] VITALS: BP 125/83; PULSE 90; TEMP 98.6; O2SAT 91
[2018-09-14] MEDS ORDERED: WARFARIN SOD 10 MG TAB PO STA (15:37)
--- NOTE | 2018-09-14 16:39 | Discharge Summary ---
Date of Service September 14, 2018 Admission HPI Per Admitting Provider 43-year-old obese male who has had exertional shortness of breath for 2 weeks with left upper chest discomfort of an exertional nature which resolves with rest. He also has had some right calf pain and swelling. Interestingly, he has a previous history of pulmonary embolism after right wrist surgery back in 2017. He may have 2 separate problems at this time considering his EKG appears to be abnormal and his troponin is significantly elevated. Chest CT scan does reveal evidence of bilateral pulmonary embolism and right ventricular strain. His oxygen saturation is 93% on room air and he is hemodynamically stable at this time. However, topical nitrates will be avoided due to the potential for hypotension associated with a bilateral PE and possible right ventricular strain. He will be given aggressive IV fluids at this time and started on Lovenox 1 mg/kg subcutaneously every 12 hours. Hypercoagulable profile has been drawn in the ED prior to initiation of anticoagulation. He will be started on aspirin therapy and beta-consuelo therapy. Complete cardiac echo will be requested along with cardiology consultation. Serial troponins ordered. Admission Exam Per Admitting Provider General-alert and oriented x3, no fevers, no chills HEENT-head atraumatic and normocephalic, TMs intact bilaterally, pupils equal and reactive to light, extraocular muscles intact Neck-no lymphadenopathy or thyromegaly, trachea midline Chest-clear to auscultation percussion. No rales wheezing or rhonchi Cardiac-regular rate and rhythm, normal S1 and S2, no murmurs Abdomen-normal bowel sounds, nontender, no hepatosplenomegaly Extremities-no cyanosis, clubbing. Right calf tenderness with equivocal Homans sign. Right calf area seems to be somewhat more swollen than the left Neuro-cranial nerves II through XII intact, motor and sensory function within normal limits, strength symmetrical 5/5, no focal deficits Psych-normal affect, normal mood Principal Diagnosis Bilateral PE with RLE DVT Discharge Exam General: A&Ox3. NAD. Cooperative. HEENT: Atraumatic, normocephalic. Pulm: CTAB A&P. -wheezes, -rales, -rhonchi. Symmetrical chest rise. No increase work of breathing. No respiratory distress. Cardiac: RRR, -mrg. Radial pulses intact and symmetrical. Abdominal: Nontender, nondistended, soft. BS present. MSK: R calf tenderness, mild R>L leg circumference ~1cm. No warmth, erythema. Discharge Data Allergies Allergy/AdvReac Type Severity Reaction Status Date / Time No Known Allergies Allergy Verified 09/13/18 12:59 Consultations 09/13/18 14:54 ED Decision to Admit Stat 09/13/18 17:25 Consult Cardiology Routine Ordered Studies 09/13/18 12:29 CT angio chest PE protocol Stat 09/13/18 17:25 US venous doppler [facility] Routine Hospital Course (1) Bilateral pulmonary embolism: Shen is a 43-year-old male with past medical history of PE who was admitted to [facility] with 2 weeks of left upper chest discomfort and shortness of breath with exertion and right calf pain/swelling. His evaluation showed bilateral PEs without signs of coronary artery disease. Bilateral pulmonary embolism 2/2 right lower extremity DVT Shen presented to the hospital with approximately 2 weeks of left upper chest discomfort on exertion, shortness of breath on exertion, and right calf pain and swelling. He had a prior medical history of PE following a right wrist surgery several years prior and no other clotting/bleeding events. On admission his EKG showed normal sinus rhythm with some ST changes concerning for anteriolateral ischemia. His troponins were mildly elevated and down trended following admission. CT chest showed bilateral pulmonary emboli with evidence of right heart strain. Doppler of his right lower extremity showed DVT from the superficial femoral through the popliteal, tibial, and peroneal vein. He had been on a 3-hour car ride prior to symptom onset, and had recent I&D of his left leg several weeks prior. Given his prior history of pulmonary embolism a hypercoagulability panel was performed and he was started on therapeutic anticoagulation with Lovenox 1mg/kg. He had a few episodes of brief sinus t achycardia with exertion, otherwise remained in normal sinus rhythm during admission. Given his anginal symptoms and mild troponin leak cardiology was consulted and an echocardiogram was performed. His echocardiogram showed normal ejection fraction and no wall motion abnormality. It was felt that his symptoms and presentation were consistent with PE and right heart strain, and a cardiac catheterization for underlying cardiac disease was not indicated at this time. Given that he had a prior coagulation history and work-up for hypercoagulable conditions was pending it was felt that he was a better candidate for warfarin rather than a DOAC. He was given a dose of warfarin 10 mg and discharged with follow-up to his PCP in the anticoagulation clinic. He will complete a minimum 3-month course of therapeutic anticoagulation with warfarin, and was discharged to complete a 5-day bridge of therapeutic 1 mg/kg of enoxaparin. He was instructed on how to dose this accurately to 130 mg as the syringes come in a 150 mg size. He was clinically well and passed a two-step without desaturation or severe tachycardia on the afternoon of discharge. Given that this is his second pulmonary embolism he will likely require lifelong prophylactic anticoagulation, this will be discussed in follow-up on as an outpatient with his PCP. Hypercoagulability panel was pending at time of discharge. Right calf pain His right lower extremity pain was consistent with DVT observed on Doppler studies as noted above. His pain improved with anticoagulation, and was present but less severe at time of discharge. He was discharged to complete anticoagulation as noted above. Total Time Total Time Spent Total Time Spent (In Minutes): 30 Total Time Includes: Examination of the Patient, Discharge Planning, Medication Reconciliation and Communication With Other Providers Discharge Plan Discharge Items Patient Disposition: Home - Self-Care Reason For Visit: BILATERAL PE, ELEVATED TROPONIN WITH ABNORMAL EKG Discharge Diagnosis: Bilateral PE with RLE DVT Discharge Goals: Decrease discomfort Activity: Per 'Additional Instructions' section Non-emergency contact: Primary Care Provider Call non-emergency contact if: you have any medication questions, your symptoms worsen, your pain is not controlled, your pain is worsening, your pain is unusual for you, your pain is concerning for you and you have a fever Follow-up/Referrals: [facility] [Provider Group] - 09/15/18 8:45 am (Please, follow up at [facility] TOMORROW, FridaySeptember AT 8:45 AM. *The clinic is located at the rear of this hospital building. Park BEHIND the hospital in [address] and enter via [facility]. If you have any questions, call Central Scheduling at [phone].) Nico Vera [Primary Care Provider] - 09/16/18 11:00 am (Please, follow up with Dr. Vera on FridaySeptember 16 at 11:00 am. *If you need to change this appointment, call the office at [phone].) Diet: Regular Addtl Provider Instructions: You were seen in the hospital for shortness of breath and chest pain. You were found to have bilateral pulmonary emboli and a blood clot in your right leg. You were seen by cardiology and had an echocardiogram which was normal. There were no signs of underlying cardiac disease, and a cardiac catheterization was not recommended. You have been prescribed a blood thinner regimen as noted below. You have been prescribed warfarin, an anticoagulant. Please take warfarin 5 mg daily and follow-up with the INR clinic for further adjustments. You will be on this medication for at least 3 months, although your primary care provider may extend this time period. While on this medication please make sure the amount of leafy green vegetables you are eating day-to-day is consistent as variations may cause this drugs effect to vary. If you develop any signs of bleeding or bruising please contact the INR clinic or your primary care provider regarding this medication. It takes several days for warfarin to take full effect. Until this time you have been prescribed a bridge of enoxaparin. You have been provided teaching during your admission on how to inject this medication. Please take enoxaparin 130 mg twice daily as directed for 5 days after discharge from the hospital. If you have any questions regarding this medication please contact the coagulation clinic or your primary care provider. An appointment has been made for you with the [facility] anticoagulation clinic for tomorrow, 09/15/2018, at 8:45 AM. This clinic is located in the back of the hospital. An appointment has been made for you for follow-up with your primary care provider, Dr. Vera, for 09/16/2018 at 11 AM. If you need to change his appointment please call his office at . Your recovery from your pulmonary embolism will be over several weeks to months. You should have slow improvements in your exercise tolerance and shortness of breath. Please remain active to a level of activity that does not worsen your symptoms, please decrease your level of activity or rest if they cause chest pain, shortness of breath, or reproduce other symptoms. If your shortness of breath, chest pain, or other symptoms worsen please call your primary care physician at [phone], or call 911 for transport to the emergency department if you are very concerned. Prescriptions: New enoxaparin [Lovenox] 150 mg/mL Syringe 150 mg subcut Q12@0600,1800 5 Days Qty: 10 RF: 0 warfarin 5 mg tablet 5 mg PO DAILY Qty: 30 RF: 3 No Action No Known Home Medications RF: 0 Stand-Alone Forms: Call Back Authorization, My [facility] Discharge Orders: Discharge Order (Routine); Ordered 09/14/18 Ordered By: Mario Singh Admission Data Admit Date/Time: 09/13/18 15:51 Attending Provider: Margot More Admit Provider: Mikey Howell Primary Care Provider: Nico Vera Other Providers: Mikey Howell ; Jonatan Lunsford ; Guillaume Almonte ; Trevon Diane ; Deniz Jean ; Juan Ramon Stallworth Jr ; Josue Kerr ; Kimberli Glasgow ; Fina Schwartz ; Italo Olmos ; Italo Navarro ; Javier Butcher ; Mikey Pruett ; Elen Mason ; Kimberly Tucker Service: Telemetry Other Interventions: Discharge Summary Assessment (RN) Last Done: 09/14/18 16:03 DC Date/Time DO NOT enter until pt leaves facility: 09/14/18 17:00 Supervising Physician Co-Signing Physician Notes Resident Physician Supervision Note: I independently interviewed and examined the patient and verified the gleason history and physical, reviewed labs and image studies, discussed the case with the resident Dr. Singh and agree with the findings and care plan. Time spent in discharge 35 min Resident Activity Tracking Resident Involvement: Resident Care Provided Care Provided: Adult Hospital Medicine
[2018-09-17 14:22] LABS: Anti Cardiolipin Ab IgG <14 GPL (< = 14); Anti Cardiolipin Ab IgM <12 MPL (< = 12); Anti-Cardiolipin Ab IgA <11 APL (< = 11); Anti-Thrombin III Activity 106 % activity (80-120); B2 Glycoprotein IgA <9 SAU (<=20); B2 Glycoprotein IgG <9 SGU (<=20); B2 Glycoprotein IgM <9 SMU (<=20); Lupus Anticoagulant Negative (Negative); Protein S Functional(Activity) 94 % (70-150)
== END 2018-09-14 17:00 | disposition home or self-care (01) | DRG 176 ==
LOC: ED 12:01 → 2S 15:51 → SUATTDRO 15:51 → 2S 16:38